=== PATIENT | male | born 1960 | race Caucasian/White ===

== ENCOUNTER 2021-08-04 10:29 | Outpatient (REF) | payer OTHER, SELFPAY ==
[2021-08-04 11:44] LABS: Hematocrit 49.4 % (42.0-52.0); Hemoglobin 16.9 g/dl (14.0-18.0); Mean Corpuscular HGB Conc 34.2 g/dl (31.0-36.0); Mean Corpuscular Hemoglobin 29.8 pg (27.0-33.0); Mean Platelet Volume 11.5 fL (9.4-12.4); Platelet Count 210 X10*3/uL (160-400); Red Blood Count 5.68 X10*6/uL (4.60-5.80); White Blood Count 7.9 X10*3/uL (4.8-10.8)
[2021-08-04 12:00] LABS: Alanine Aminotransferase 71 U/L (0-40); Albumin Level 4.9 g/dL (3.5-5.0); Alkaline Phosphatase 112 U/L (39-117); Anion Gap 16 (12-20); Aspartate Amino Transferase 63 U/L (5-37); Blood Urea Nitrogen 10 mg/dL (9-16); Calcium 10.1 mg/dL (8.4-10.2); Carbon Dioxide 24 mmol/L (22-29); Chloride 105 mmol/L (96-108); Cholesterol 215 mg/dL; Estimated Glomerular Filt Rate > 60; Glucose Fasting 176 mg/dL (60-99); HDL Cholesterol 37 mg/dL; Potassium 3.8 mmol/L (3.3-5.1); Sodium 141 mmol/L (135-145); Total Protein 7.8 g/dL (6.5-8.0); Triglycerides 441 mg/dL
[2021-08-04 12:11] LABS: Prostate Specific Antigen Scr 0.48 ng/mL (<0.05-4.0); Vitamin D 25-OH Total 13.3 ng/mL (>30)
[2021-08-04 12:18] LABS: Appearance Urine CLEAR; Color Urine YELLOW; Glucose Urine UA NEG (NEG); Leukocyte Esterase Urine NEG (NEG); Nitrite Urine NEG (NEG); PH 5.5 (5.0-8.0); Specific Gravity - Urine >= 1.030 (1.005-1.025); Urine Blood NEG (NEG); Urine Ketones NEG (NEG); Urine Protein NEG (NEG-TRACE)
[2021-08-04 12:35] LABS: RBC Urine 0 /HPF (0); WBC Urine 0 /HPF (0-4)
[2021-08-06 07:28] LABS: Estimated Average Glucose 143 mg/dL; Hemoglobin A1c % 6.6 %
== END 2021-08-04 10:30 | disposition home or self-care (01) ==
LOC: HO.HMGCLDS 10:29
PROVIDERS: PCP Internal Medicine; Visit Provider Internal Medicine
DX: Z00.00 Encounter for general adult medical examination without abnormal findings (principal); Z12.5 Encounter for screening for malignant neoplasm of prostate; R73.9 Hyperglycemia, unspecified
CPT/HCPCS: 36415; 80053; 80061; 81001; 82306; 83036; 84153; 85027

== ENCOUNTER 2021-10-28 09:32 | Outpatient (REF) | payer OTHER, SELFPAY ==
[2021-10-28 11:56] LABS: Alanine Aminotransferase 33 U/L (0-40); Albumin Level 4.7 g/dL (3.5-5.0); Alkaline Phosphatase 113 U/L (39-117); Anion Gap 13 (12-20); Aspartate Amino Transferase 32 U/L (5-37); Bilirubin Total 0.9 mg/dL (0.0-1.0); Blood Urea Nitrogen 14 mg/dL (9-16); Calcium 10.1 mg/dL (8.4-10.2); Carbon Dioxide 29 mmol/L (22-29); Chloride 104 mmol/L (96-108); Cholesterol 226 mg/dL; Estimated Glomerular Filt Rate > 60; Glucose Fasting 112 mg/dL (60-99); HDL Cholesterol 30 mg/dL; Potassium 4.1 mmol/L (3.3-5.1); Sodium 142 mmol/L (135-145); Total Protein 7.7 g/dL (6.5-8.0); Triglycerides 667 mg/dL
[2021-10-28 12:06] LABS: Vitamin D 25-OH Total 14.2 ng/mL (>30)
[2021-10-28 12:21] LABS: Folate 11.5 ng/mL (> or = 4.0); Vitamin B12 427 pg/mL (200-900)
== END 2021-10-28 09:33 | disposition home or self-care (01) ==
LOC: HO.HMGCLDS 09:32
PROVIDERS: PCP Internal Medicine; Visit Provider Internal Medicine
DX: I10 Essential (primary) hypertension (principal); R73.9 Hyperglycemia, unspecified; E53.8 Deficiency of other specified B group vitamins; E55.9 Vitamin D deficiency, unspecified; G47.30 Sleep apnea, unspecified; E78.5 Hyperlipidemia, unspecified
CPT/HCPCS: 36415; 80053; 80061; 82306; 82607; 82746

== ENCOUNTER 2021-12-13 08:31 | Outpatient (REF) | payer OTHER, SELFPAY ==
[2021-12-13 11:30] LABS: Alanine Aminotransferase 39 U/L (0-40); Albumin Level 4.5 g/dL (3.5-5.0); Alkaline Phosphatase 89 U/L (39-117); Anion Gap 11 (12-20); Aspartate Amino Transferase 34 U/L (5-37); Blood Urea Nitrogen 14 mg/dL (9-16); Calcium 9.6 mg/dL (8.4-10.2); Carbon Dioxide 27 mmol/L (22-29); Chloride 107 mmol/L (96-108); Cholesterol 153 mg/dL; Estimated Glomerular Filt Rate > 60; Glucose Fasting 129 mg/dL (60-99); HDL Cholesterol 31 mg/dL; LDL Cholesterol Calculated 78 mg/dl; Potassium 3.8 mmol/L (3.3-5.1); Sodium 141 mmol/L (135-145); Total Protein 7.2 g/dL (6.5-8.0); Triglycerides 220 mg/dL
[2021-12-13 11:31] LABS: Estimated Average Glucose 128 mg/dL; Hemoglobin A1c % 6.1 %
[2021-12-13 11:45] LABS: Creatinine Urine 119.29 mg/dL; Microalbum/Creatinine Ratio Ur 15.9 ug/mg cr
== END 2021-12-13 08:32 | disposition home or self-care (01) ==
LOC: HO.HMGCLDS 08:31
PROVIDERS: Visit Provider Internal Medicine
DX: R73.9 Hyperglycemia, unspecified (principal); I10 Essential (primary) hypertension; E78.5 Hyperlipidemia, unspecified
CPT/HCPCS: 36415; 80053; 80061; 82043; 83036

== ENCOUNTER 2022-08-28 09:00 | Outpatient (REF) | payer OTHER, SELFPAY ==
[2022-08-28 11:36] LABS: Alanine Aminotransferase 36 U/L (0-40); Albumin Level 4.7 g/dL (3.5-5.0); Alkaline Phosphatase 101 U/L (39-117); Anion Gap 14 (12-20); Aspartate Amino Transferase 32 U/L (5-37); Bilirubin Total 0.8 mg/dL (0.0-1.0); Blood Urea Nitrogen 14 mg/dL (9-16); Calcium 9.6 mg/dL (8.4-10.2); Carbon Dioxide 28 mmol/L (22-29); Chloride 103 mmol/L (96-108); Cholesterol 251 mg/dL; Estimated Glomerular Filt Rate > 60; Glucose Fasting 134 mg/dL (60-99); HDL Cholesterol 33 mg/dL; Potassium 4.1 mmol/L (3.3-5.1); Sodium 141 mmol/L (135-145); Total Protein 7.4 g/dL (6.5-8.0); Triglycerides 525 mg/dL
[2022-08-28 11:44] LABS: Estimated Average Glucose 131 mg/dL; Hemoglobin A1c % 6.2 %
[2022-08-28 11:53] LABS: Creatinine Urine 109.26 mg/dL; Microalbum/Creatinine Ratio Ur 41.1 ug/mg cr
[2022-08-28 11:57] LABS: PSA,Total (Free>4and<10) 0.46 ng/mL (0.00-4.00); Vitamin D 25-OH Total 13.9 ng/mL (>30)
[2022-08-28 14:16] LABS: Folate 10.4 ng/mL (> or = 4.0)
[2022-08-28 14:18] LABS: Vitamin B12 256 pg/mL (200-900)
== END 2022-08-28 09:01 | disposition home or self-care (01) ==
LOC: HO.HMGCLDS 09:00
PROVIDERS: PCP Internal Medicine; Visit Provider Internal Medicine
DX: Z12.5 Encounter for screening for malignant neoplasm of prostate (principal); E53.8 Deficiency of other specified B group vitamins; E55.9 Vitamin D deficiency, unspecified; I10 Essential (primary) hypertension; R73.9 Hyperglycemia, unspecified; E78.5 Hyperlipidemia, unspecified
CPT/HCPCS: 36415; 80053; 80061; 82043; 82306; 82607; 82746; 83036; 84153

== ENCOUNTER 2023-03-31 09:29 | Outpatient (REF) | payer OTHER, SELFPAY ==
[2023-03-31 11:16] LABS: MANUAL DIFF FLAG NO
[2023-03-31 11:25] LABS: Basophils Absolute Auto 0.1 X10*3/uL (0.0-0.2); Basophils Percent Auto 0.6 % (0-2); Eosinophils Absolute Auto 0.4 X10*3/uL (0.0-0.4); Eosinophils Percent Auto 4.4 % (0-4); Hematocrit 49.4 % (42.0-52.0); Hemoglobin 16.6 g/dl (14.0-18.0); Imm Gran Abs Auto 0.06 X10*3/uL (0.00-0.03); Imm Gran Pct Auto 0.8 % (0.0-0.4); Lymphocytes Absolute Auto 2.4 X10*3/uL (1.2-4.9); Lymphocytes Percent Auto 29.7 % (20-40); Mean Corpuscular HGB Conc 33.6 g/dl (31.0-36.0); Mean Corpuscular Hemoglobin 30.5 pg (27.0-33.0); Mean Corpuscular Volume 90.8 fL (80.0-98.0); Mean Platelet Volume 12.4 fL (9.4-12.4); Monocytes Absolute Auto 0.6 X10*3/uL (0.1-1.2); Monocytes Percent Auto 7.2 % (2-11); Neutrophils Absolute Auto 4.5 x10*3/uL (2.0-8.3); Neutrophils Percent Auto 57.3 % (45-73); Platelet Count 196 X10*3/uL (160-400); Red Blood Count 5.44 X10*6/uL (4.60-5.80); Red Cell Distribution Width 13.3 % (11.0-16.0); White Blood Count 7.9 X10*3/uL (4.8-10.8)
[2023-03-31 11:28] LABS: Estimated Average Glucose 131 mg/dL; Hemoglobin A1c % 6.2 %
[2023-03-31 11:35] LABS: Appearance Urine Clear; Color Urine Yellow; Glucose Urine UA Negative (Negative); Leukocyte Esterase Urine Negative (Negative); Nitrite Urine Negative (Negative); Specific Gravity - Urine 1.025 (1.005-1.025); Urine Blood Negative (Negative); Urine Ketones Negative (Negative); Urine Protein Negative (Neg-Trace)
[2023-03-31 11:38] LABS: Bacteria Urine None Seen (None Seen); Hyaline Casts Urine 0-2 /LPF (0-2); Squamous Epithelial Cell Urine 0-2 /HPF (0-2); WBC Urine 0-5 /HPF (0-5)
[2023-03-31 11:39] LABS: Alanine Aminotransferase 44 U/L (0-40); Albumin Level 4.3 g/dL (3.5-5.0); Alkaline Phosphatase 88 U/L (39-117); Anion Gap 9 (12-20); Aspartate Amino Transferase 42 U/L (5-37); Bilirubin Total 0.9 mg/dL (0.0-1.0); Blood Urea Nitrogen 14 mg/dL (9-16); Calcium 9.6 mg/dL (8.4-10.2); Carbon Dioxide 25 mmol/L (22-29); Chloride 106 mmol/L (96-108); Cholesterol 209 mg/dL; Estimated Glomerular Filt Rate > 60; Glucose Fasting 171 mg/dL (60-99); HDL Cholesterol 29 mg/dL; LDL Cholesterol Calculated 107 mg/dl; Potassium 3.8 mmol/L (3.3-5.1); Sodium 136 mmol/L (135-145); Total Protein 7.1 g/dL (6.5-8.0); Triglycerides 369 mg/dL
[2023-03-31 11:53] LABS: Creatinine Urine 174.76 mg/dL; Microalbum/Creatinine Ratio Ur 27.4 ug/mg cr
[2023-03-31 12:01] LABS: Vitamin B12 352 pg/mL (200-900)
== END 2023-03-31 09:30 | disposition home or self-care (01) ==
LOC: HO.HMGCLDS 09:29
PROVIDERS: PCP Internal Medicine; Visit Provider Internal Medicine
DX: E53.8 Deficiency of other specified B group vitamins (principal); E78.5 Hyperlipidemia, unspecified; I10 Essential (primary) hypertension; R73.9 Hyperglycemia, unspecified
CPT/HCPCS: 36415; 80053; 80061; 81001; 82043; 82607; 83036; 85025

== ENCOUNTER 2023-09-08 10:30 | Outpatient (AMB) | payer OTHER, SELFPAY ==
--- NOTE | 2023-09-08 10:33 | A.OFFPC_ITS ---
Vital Signs 09/08/23 10:35 Height 5 ft 9 in Weight 269 lb BMI 39.7 BP 130/85 Blood Pressure Location Lt brachial Position Sitting Pulse 96 Pulse Source Pulse Oximeter Pulse Oximetry (%) 97 Oxygen Delivery Method Room Air Intake Visit Reasons: 3M. HTN DM/ Cardio Referral Intake Note: Pt is here today for his 3mo. f/u HTN and DM Allergies No Known Allergies Allergy (Verified 09/08/23 10:36) Medication List - Last Reconciled 09/08/23 by Gissell Garrett MD amlodipine 10 mg PO DAILY cholecalciferol (vitamin D3) 50 mcg PO DAILY cyanocobalamin (vitamin B-12) 1,000 mcg sublingual DAILY fenofibrate nanocrystallized 145 mg PO DAILY metformin ER 750 mg PO DAILY metoprolol succinate ER 50 mg PO BID olmesartan 20 mg PO BID rosuvastatin (Crestor) 40 mg PO DAILY Tobacco use date assessed: 09/08/23 Dental Screening Dental Screen Date: 09/08/23 Did you have a dental visit in the last 12 months?: No Was dental information given to patient?: Patient has dentist HPI 3M. HTN DM/ Cardio Referral HPI Details Patient presents for the follow-up. He developed new onset AFib before colonoscopy which was canceled. Patient denies chest pain shortness of breath or palpitations. He has an appointment with financial accountant at [facility] in 2 weeks. Patient has been compliant with his medications for hypertension hyperlipidemia and type 2 diabetes. [facility] Medical History (Updated 09/08/23 @ 11:47 by Gissell Garrett MD) Arrhythmia Sleep apnea Vitamin D deficiency Vitamin B 12 deficiency Hyperlipidemia HTN (hypertension) Hyperglycemia Annual physical exam Surgical History Total knee replacement status Social History Housing: House Patient Tobacco Use Status: Never used Tobacco e-Cigarette/Vaping Use: Never Used service: No Current occupational status: employed Cognitive needs: No Hearing needs: No Vision needs: No Questionnaire Thrive Questionnaire Date Thrive assessed: 04/09/23 MECHE-7 AMB Questionnaire MECHE-7 Date MECHE - 7 assessed: 04/09/23 Source: Developed by Drs. Dominic Ace, Latanya B.W. Joe Cruz and colleagues, with an educational monica from [employer]. Review of Systems Const All systems reviewed & are unremarkable except as noted in HPI and below Reports no additional complaints Eyes Reports no additional complaints ENT Reports no additional complaints Card Reports no additional complaints Resp Reports no additional complaints GI Reports no additional complaints Reports no additional complaints Physical exam (Primary Care) Vital Signs: Last Vital Signs Pulse 96 09/08/23 10:35 BP 154/98 H 09/08/23 10:35 Pulse Ox 97 09/08/23 10:35 Oxygen Delivery Method Room Air 09/08/23 10:35 BMI result Body Mass Index 39.7 Tobacco/Smoking Status: Tobacco use Status Tobacco use date assessed 09/08/23 09/08/23 10:36 Patient Tobacco Use Status Never used Tobacco 09/08/23 10:34 e-Cigarette/Vaping Use Never Used 09/08/23 10:34 Thrive Assessment: Date of Thrive Assessment Date Thrive assessed 04/09/23 09/08/23 10:34 Const General: no acute distress HENMT Head: Yes normal to inspection Resp Effort & Inspection: normal respiratory effort Auscultation: clear to auscultation bilaterally Cardio Rhythm: abnormal rhythm irregularly irregular Heart sounds: S1 normal heart sound present and S2 normal heart sound present GI Inspection: Yes normal to inspection Palpation (GI): Soft to palpation Results AMB Hemoglobin A1c AMB Hemoglobin A1c 6.2 % Last Edit by Anaid Kemp CMA on 09/08/23 10:51 Results Reviewed Results Reviewed: Laboratory Last Values Hgb A1c (Clinic) 6.2 % (4.0-6.0) H 09/08/23 10:42 Assessment and Plan Assessment & Plan (1) DM type 2 (diabetes mellitus, type 2): Code(s): E11.9 - Type 2 diabetes mellitus without complications Plan: A1c is 6.1 continue metformin, ADA diet (2) Hyperlipidemia: Code(s): E78.5 - Hyperlipidemia, unspecified Plan: Continue Crestor and fenofibrate fasting lipid profile will be checked today (3) HTN (hypertension): Code(s): I10 - Essential (primary) hypertension Plan: Continue current medications increase metoprolol to 100 mg twice a day for better heart rate and blood pressure control. (4) Arrhythmia: Comment: New onset AFib 09/25 Code(s): I49.9 - Cardiac arrhythmia, unspecified Plan: EKG showed AFib with T-wave inversions in leads 2 3 AVF. Xarelto 20 mg will be started and metoprolol increased to 100 mg twice a day. patient will follow-up with financial accountant in 2 weeks. He will have a fasting blood work today and will follow-up in 1 month Orders: Orders Hemoglobin A1c Today E11.9 - Type 2 diabetes mellitus without complications, E78.5 - Hyperlipidemia, unspecified, I10 - Essential (primary) hypertension, I49.9 - Cardiac arrhythmia, unspecified Complete Blood Count Auto Diff Today E11.9 - Type 2 diabetes mellitus without complications, E78.5 - Hyperlipidemia, unspecified, I10 - Essential (primary) hypertension, I49.9 - Cardiac arrhythmia, unspecified TSH reflex Free T4 Today E11.9 - Type 2 diabetes mellitus without complications, E78.5 - Hyperlipidemia, unspecified, I10 - Essential (primary) hypertension, I49.9 - Cardiac arrhythmia, unspecified AMB Hemoglobin A1c Today E11.9 - Type 2 diabetes mellitus without complications Comprehensive [place]. Panel Fast Today E11.9 - Type 2 diabetes mellitus without complications, E78.5 - Hyperlipidemia, unspecified, I10 - Essential (primary) hypertension, I49.9 - Cardiac arrhythmia, unspecified Lipid Panel Today E11.9 - Type 2 diabetes mellitus without complications, E78.5 - Hyperlipidemia, unspecified, I10 - Essential (primary) hypertension, I49.9 - Cardiac arrhythmia, unspecified Medications: New rivaroxaban (Xarelto) must administer with evening meal 20 mg PO DAILY 30 tabs 0RF rivaroxaban (Xarelto) must administer with evening meal 20 mg PO DAILY 90 tabs 3RF metoprolol succinate ER 100 mg PO BID 180 tabs 2RF Refilled metformin ER 750 mg PO DAILY 90 tabs 3RF fenofibrate nanocrystallized 145 mg PO DAILY 90 tabs 3RF amlodipine 10 mg PO DAILY 90 tabs 3RF rosuvastatin (Crestor) 40 mg PO DAILY 90 tabs 3RF olmesartan 20 mg PO BID 180 tabs 3RF Discontinued metoprolol succinate ER Discontinued Reason: Doctor's Order 50 mg PO BID 180 tabs 3RF Coding Level of Care Code Est Pt Level 4 (72329) Diagnoses DM type 2 (diabetes mellitus, type 2) E11.9 Hyperlipidemia E78.5 HTN (hypertension) I10 Arrhythmia I49.9
[2023-09-08 10:35] VITALS: BP 130/85; PULSE 96; O2SAT 97; BMI 39.7
== END 2023-09-08 11:49 | disposition home or self-care (01) ==
PROVIDERS: PCP Internal Medicine; Visit Provider Internal Medicine
DX: E11.9 Type 2 diabetes mellitus without complications (principal); E78.5 Hyperlipidemia, unspecified; I10 Essential (primary) hypertension; I49.9 Cardiac arrhythmia, unspecified
CPT/HCPCS: 83036; 99214

== ENCOUNTER 2023-09-08 11:41 | Outpatient (REF) | payer OTHER, SELFPAY ==
[2023-09-08 13:08] LABS: MANUAL DIFF FLAG NO
[2023-09-08 13:41] LABS: Estimated Average Glucose 137 mg/dL; Hemoglobin A1c % 6.4 % (<6.0)
[2023-09-08 13:42] LABS: Basophils Percent Auto 0.5 % (0-2); Eosinophils Absolute Auto 0.2 X10*3/uL (0.0-0.4); Eosinophils Percent Auto 2.6 % (0-4); Hematocrit 51.4 % (42.0-52.0); Hemoglobin 17.5 g/dl (14.0-18.0); Imm Gran Abs Auto 0.02 X10*3/uL (0.00-0.03); Imm Gran Pct Auto 0.3 % (0.0-0.4); Lymphocytes Absolute Auto 1.9 X10*3/uL (1.2-4.9); Lymphocytes Percent Auto 23.2 % (20-40); Mean Corpuscular Hemoglobin 30.8 pg (27.0-33.0); Mean Corpuscular Volume 90.5 fL (80.0-98.0); Mean Platelet Volume 12.1 fL (9.4-12.4); Monocytes Absolute Auto 0.7 X10*3/uL (0.1-1.2); Monocytes Percent Auto 8.8 % (2-11); Neutrophils Absolute Auto 5.1 x10*3/uL (2.0-8.3); Neutrophils Percent Auto 64.6 % (45-73); Platelet Count 200 X10*3/uL (160-400); Red Blood Count 5.68 X10*6/uL (4.60-5.80); Red Cell Distribution Width 13.5 % (11.0-16.0)
[2023-09-08 14:02] LABS: Creatinine Urine 206.38 mg/dL; Microalbum/Creatinine Ratio Ur 53.2 ug/mg cr (<30)
[2023-09-08 14:18] LABS: Alanine Aminotransferase 59 U/L (0-40); Albumin Level 4.7 g/dL (3.5-5.0); Alkaline Phosphatase 90 U/L (39-117); Anion Gap 13 (12-20); Aspartate Amino Transferase 68 U/L (5-37); Blood Urea Nitrogen 16 mg/dL (9-16); Calcium 9.6 mg/dL (8.4-10.2); Carbon Dioxide 26 mmol/L (22-29); Chloride 106 mmol/L (96-108); Cholesterol 245 mg/dL (<200); Estimated Glomerular Filt Rate > 60; Glucose Fasting 121 mg/dL (60-99); Glucose Random 119 mg/dL (60-115); HDL Cholesterol 37 mg/dL (>40); LDL Cholesterol Calculated 142 mg/dL (<100); Potassium 3.5 mmol/L (3.3-5.1); Sodium 141 mmol/L (135-145); Total Protein 7.7 g/dL (6.5-8.0); Triglycerides 334 mg/dL (<150)
[2023-09-08 14:23] LABS: TSH reflex Free T4 1.82 uIU/mL (0.32-4.0)
== END 2023-09-08 11:42 | disposition home or self-care (01) ==
LOC: HO.HMGCLDS 11:41
PROVIDERS: PCP Internal Medicine; Visit Provider Internal Medicine
DX: I10 Essential (primary) hypertension (principal); E11.9 Type 2 diabetes mellitus without complications; I49.9 Cardiac arrhythmia, unspecified; E78.5 Hyperlipidemia, unspecified
CPT/HCPCS: 36415; 80048; 80053; 80061; 82043; 82570; 83036; 84443; 85025

== ENCOUNTER 2024-05-19 09:37 | Outpatient (REF) | payer OTHER, SELFPAY ==
[2024-05-19 13:14] LABS: MANUAL DIFF FLAG NO
[2024-05-19 13:39] LABS: Basophils Percent Auto 0.5 % (0-2); Eosinophils Absolute Auto 0.3 X10*3/uL (0.0-0.4); Eosinophils Percent Auto 4.1 % (0-4); Hematocrit 49.1 % (42.0-52.0); Hemoglobin 16.6 g/dl (14.0-18.0); Imm Gran Abs Auto 0.02 X10*3/uL (0.00-0.03); Imm Gran Pct Auto 0.3 % (0.0-0.4); Lymphocytes Absolute Auto 1.8 X10*3/uL (1.2-4.9); Lymphocytes Percent Auto 24.5 % (20-40); Mean Corpuscular HGB Conc 33.8 g/dl (31.0-36.0); Mean Corpuscular Hemoglobin 30.4 pg (27.0-33.0); Mean Corpuscular Volume 89.9 fL (80.0-98.0); Mean Platelet Volume 12.7 fL (9.4-12.4); Monocytes Absolute Auto 0.7 X10*3/uL (0.1-1.2); Monocytes Percent Auto 8.7 % (2-11); Neutrophils Absolute Auto 4.6 x10*3/uL (2.0-8.3); Neutrophils Percent Auto 61.9 % (45-73); Platelet Count 165 X10*3/uL (160-400); Red Blood Count 5.46 X10*6/uL (4.60-5.80); Red Cell Distribution Width 13.3 % (11.0-16.0); White Blood Count 7.5 X10*3/uL (4.8-10.8)
[2024-05-19 14:01] LABS: Alanine Aminotransferase 60 U/L (0-40); Albumin Level 4.6 g/dL (3.5-5.0); Alkaline Phosphatase 99 U/L (39-117); Anion Gap 17 (12-20); Aspartate Amino Transferase 74 U/L (5-37); Blood Urea Nitrogen 13 mg/dL (9-16); Calcium 9.6 mg/dL (8.4-10.2); Carbon Dioxide 22 mmol/L (22-29); Chloride 106 mmol/L (96-108); Cholesterol 223 mg/dL (<200); Estimated Glomerular Filt Rate > 60; Glucose Fasting 148 mg/dL (60-99); HDL Cholesterol 31 mg/dL (>40); Potassium 3.6 mmol/L (3.3-5.1); Sodium 141 mmol/L (135-145); Total Protein 7.4 g/dL (6.5-8.0); Triglycerides 510 mg/dL (<150)
[2024-05-19 14:02] LABS: Estimated Average Glucose 134 mg/dL; Hemoglobin A1c % 6.3 % (<6.0)
== END 2024-05-19 09:38 | disposition home or self-care (01) ==
LOC: HO.HMGCLDS 09:37
PROVIDERS: PCP Internal Medicine; Visit Provider Internal Medicine
DX: I10 Essential (primary) hypertension (principal); E11.9 Type 2 diabetes mellitus without complications; E78.5 Hyperlipidemia, unspecified
CPT/HCPCS: 36415; 80053; 80061; 83036; 85025

== ENCOUNTER 2024-05-25 09:48 | Outpatient (AMB) | payer OTHER, SELFPAY ==
--- NOTE | 2024-05-25 09:49 | MHC.PC.OV ---
Vital Signs 05/25/24 09:52 Height 5 ft 9 in Weight 266 lb BMI 39.3 BP 134/74 Blood Pressure Location Lt brachial Position Sitting Pulse 67 Pulse Source Pulse Oximeter Pulse Oximetry (%) 96 Oxygen Delivery Method Room Air Intake Visit Reasons: med f/u Intake Note: Pt is here today for a follow up visit. Pt needs a refill on Fenofibrate send to mail pharmacy. Allergies No Known Allergies Allergy (Verified 05/25/24 09:53) Medication List - Last Reconciled 05/25/24 by Gissell Garrett MD amlodipine 10 mg PO DAILY cyanocobalamin (vitamin B-12) 1,000 mcg sublingual DAILY ezetimibe (Zetia) 10 mg PO DAILY fenofibrate nanocrystallized 145 mg PO DAILY hydrochlorothiazide 12.5 mg PO DAILY metformin ER 750 mg PO DAILY metoprolol succinate ER 100 mg PO BID olmesartan 20 mg PO BID Praluent Pen (alirocumab) 75 mg subcut Q14D NS rivaroxaban (Xarelto) 20 mg PO DAILY rosuvastatin (Crestor) 40 mg PO DAILY Tobacco use date assessed: 05/25/24 Dental Screening Dental Screen Date: 05/25/24 Did you have a dental visit in the last 12 months?: Yes Did you have a dental problem in the last 6 months where you did not have access to dental care?: No Was dental information given to patient?: Patient has dentist HPI med f/u HPI Details Pt presents for f/u HTN, hyperlipid, DM 2. Pt c/o RUE intermittent tingling and pain radiating from right shoulder down to index and thumb on and off for few months. Patient denies weakness in the right upper extremity. [facility] Medical History (Updated 05/25/24 @ 10:36 by Gissell Garrett MD) Arrhythmia Sleep apnea Vitamin D deficiency Vitamin B 12 deficiency Hyperlipidemia HTN (hypertension) Annual physical exam Surgical History Total knee replacement status Social History Housing: House Patient Tobacco Use Status: Never used Tobacco e-Cigarette/Vaping Use: Never Used service: No Current occupational status: employed Cognitive needs: No Hearing needs: No Vision needs: No Questionnaire PHQ-9 Over the last 2 weeks, how often have you been bothered by any of the following problems? 1. Little interest or pleasure in doing things: not at all 2. Feeling down, depressed, or hopeless: not at all 3. Trouble falling or staying asleep, or sleeping too much: not at all 4. Feeling tired or having little energy: not at all 5. Poor appetite or overeating: not at all 6. Feeling bad about yourself - or that you are a failure or have let yourself or your family down: not at all 7. Trouble concentrating on things, such as reading the newspaper or watching television: not at all 8. Moving or speaking so slowly that other people could have noticed. Or the opposite - being so fidgety or restless that you have been moving around a lot more than usual: not at all 9. Thoughts that you would be better off or of hurting yourself in some way: not at all Total score: 0 Depression Screening Interpretation: Negative Depression Screening Done: Yes 88225 - PHQ-9 Billing: Yes Source: Developed by Drs. Dominic Ace, Latanya Cruz, Joe Morton and colleagues, with an educational monica from [employer]. Thrive Questionnaire Date Thrive assessed: 05/25/24 I am a: Patient What is your living situation today?: I have a steady place to live Within the past 12 months, did the food you bought not last and you didn't have the money to get more?: I choose not to answer this question Within the past 12 months, did you worry whether your food would run out before you got money to buy more?: I choose not to answer this question Do you have trouble paying for medicines?: I choose not to answer this question Do you have trouble getting transportation to medical appointments?: I choose not to answer this question Do you have trouble paying your heating and electricity bill?: I choose not to answer this question Do you have trouble taking care of your child, family member or friend?: I choose not to answer this question Do you have trouble with day-to-day activities such as bathing, preparing meals, shopping, managing finances, etc.?: I choose not to answer this question Are you currently unemployed and looking for a job?: I choose not to answer this question Are you interested in more education?: I choose not to answer this question Please select the resources that you would like help with: None Currently or been in a relationship where the following occur: I choose not to answer THRIVE Score: 0 AUDIT C Alcohol Use Questionnaire (AUDIT-C) 1. How often do you have a drink containing alcohol?: Never 3. How often do you have six or more drinks on one occasion?: Never Total Score: 0 MECHE-7 AMB Questionnaire MECHE-7 Date MECHE - 7 assessed: 05/25/24 Feeling nervous, anxious, or on edge: 0 = Not at all Not being able to stop or control worryin = Not at all Worrying too much about different things: 0 = Not at all Trouble relaxin = Not at all Being so restless that it is hard to sit still: 0 = Not at all Becoming easily annoyed or irritable: 0 = Not at all Feeling afraid as if something awful might happen: 0 = Not at all Total MECHE-7 score (0-4 normal; 5-9 mild; 10-14 moderate; 15-21 severe): 0 Source: Developed by Drs. Dominic Ace, Latanya Cruz, Joe Morton and colleagues, with an educational monica from [employer]. MECHE-7 Assessment Billing MECHE-7 Assessment Tool: MECHE-7 Assessment 69908 Review of Systems Const All systems reviewed & are unremarkable except as noted in HPI and below Eyes Reports no additional complaints Card Reports no additional complaints Resp Reports no additional complaints GI Reports no additional complaints Reports no additional complaints Physical exam (Primary Care) Vital Signs: Last Vital Signs Pulse 67 05/25/24 09:52 BP 134/74 05/25/24 09:52 Pulse Ox 96 05/25/24 09:52 Oxygen Delivery Method Room Air 05/25/24 09:52 BMI result Body Mass Index 39.3 Tobacco/Smoking Status: Tobacco use Status Tobacco use date assessed 05/25/24 05/25/24 09:55 Patient Tobacco Use Status Never used Tobacco 05/25/24 09:55 e-Cigarette/Vaping Use Never Used 05/25/24 09:49 PHQ-9: PHQ-9 Score PHQ-9: Total score 0 05/25/24 09:57 Depression Screening Interpretation: Negative Thrive Assessment: Date of Thrive Assessment Date Thrive assessed 05/25/24 05/25/24 09:57 Currently or been in a relationship where the following occur: I choose not to answer Const General: no acute distress HENMT Face and sinus: Yes normal facial exam Eyes General: appearance normal, both eyes and all related structures Resp Effort & Inspection: normal respiratory effort Auscultation: clear to auscultation bilaterally Cardio Rhythm: regular rhythm Heart sounds: S1 normal heart sound present and S2 normal heart sound present GI Inspection: Yes normal to inspection Palpation (GI): Soft to palpation Percussion: Yes normal to percussion Auscultation: normal bowel sounds Neuro General: Normal light touch and pain sensation, no focal motor deficits and CN's II-XI intact bilaterally Assessment and Plan Assessment & Plan (1) DM type 2 (diabetes mellitus, type 2): Code(s): E11.9 - Type 2 diabetes mellitus without complications Plan: A1c is 6.3, ADA diet increase exercise weight loss discussed with the patient . continue metformin follow-up in 4 months with a fasting labs before (2) Hyperlipidemia: Code(s): E78.5 - Hyperlipidemia, unspecified Plan: Patient is on 3 medications for hyperlipidemia hypertriglyceridemia with persistent elevation of triglycerides about 500 and total cholesterol above 250, Praluent 75 mg 2 weeks will be added (3) HTN (hypertension): Code(s): I10 - Essential (primary) hypertension Plan: Continue current medications (4) Obesity: Code(s): E66.9 - Obesity, unspecified Plan: Increase physical activity decrease caloric intake and weight loss discussed with the patient (5) Sleep apnea: Comment: Cpap f/u pul [facility] q 3 months Code(s): G47.30 - Sleep apnea, unspecified (6) Arrhythmia: Comment: New onset AFib 09/25 Code(s): I49.9 - Cardiac arrhythmia, unspecified Plan: Continue metoprolol and Xarelto (7) Right arm numbness: Code(s): R20.0 - Anesthesia of skin Plan: Obtain EMG to evaluate for cervical radiculopathy/carpal tunnel Orders: Orders Hemoglobin A1c 4 Months E11.9 - Type 2 diabetes mellitus without complications, E78.5 - Hyperlipidemia, unspecified, I10 - Essential (primary) hypertension Comprehensive [place]. Panel Fast 4 Months E11.9 - Type 2 diabetes mellitus without complications, E78.5 - Hyperlipidemia, unspecified, I10 - Essential (primary) hypertension NE electromyogram (EMG) 4 Months E11.9 - Type 2 diabetes mellitus without complications, E78.5 - Hyperlipidemia, unspecified, I10 - Essential (primary) hypertension, R20.0 - Anesthesia of skin Lipid Panel 4 Months E11.9 - Type 2 diabetes mellitus without complications, E78.5 - Hyperlipidemia, unspecified, I10 - Essential (primary) hypertension Microalbumin, Random (w Creat) 4 Months E11.9 - Type 2 diabetes mellitus without complications, E78.5 - Hyperlipidemia, unspecified, I10 - Essential (primary) hypertension PSA,Total (Free>4and<10) 4 Months E11.9 - Type 2 diabetes mellitus without complications, E78.5 - Hyperlipidemia, unspecified, I10 - Essential (primary) hypertension Complete Blood Count Auto Diff 4 Months E11.9 - Type 2 diabetes mellitus without complications, E78.5 - Hyperlipidemia, unspecified, I10 - Essential (primary) hypertension Medications: New Praluent Pen (alirocumab) 75 mg subcut Q14D 2 mL 4RF NS Refilled fenofibrate nanocrystallized 145 mg PO DAILY 90 tabs 3RF Coding Level of Care Code Est Pt Level 4 (19148) Diagnoses DM type 2 (diabetes mellitus, type 2) E11.9 Hyperlipidemia E78.5 HTN (hypertension) I10 Obesity E66.9 Sleep apnea G47.30 Arrhythmia I49.9 Right arm numbness R20.0 Additional Codes MECHE-7 Assessment Billing - MECHE-7 Assessment Tool: MECHE-7 Assessment 34389 ([id number])
[2024-05-25 09:52] VITALS: BP 134/74; PULSE 67; O2SAT 96; BMI 39.3
== END 2024-05-25 10:36 | disposition home or self-care (01) ==
PROVIDERS: PCP Internal Medicine; Visit Provider Internal Medicine
DX: E11.9 Type 2 diabetes mellitus without complications (principal); E66.01 Morbid (severe) obesity due to excess calories; Z68.39 Body mass index [BMI] 39.0-39.9, adult; E78.5 Hyperlipidemia, unspecified; I10 Essential (primary) hypertension; G47.30 Sleep apnea, unspecified; I49.9 Cardiac arrhythmia, unspecified; R20.0 Anesthesia of skin
CPT/HCPCS: 99214

== ENCOUNTER 2024-08-29 11:07 | Outpatient (REF) | payer OTHER, SELFPAY ==
--- NOTE | 2024-08-29 11:09 | EMG_ITS ---
Right median and ulnar motor and sensory studies were performed. Right radial sensory and median lateral antecubital brachial sensory studies were performed and paraspinal muscles were tested with a needle. IMPRESSION: 1. [id number] right median neuropathy across carpal tunnel. 2. Mild right ulnar neuropathy across cubital tunnel. MD NATASHA Weir/PAUL / [id number]
== END 2024-08-29 11:08 | disposition home or self-care (01) ==
LOC: HO.NEURO 11:07
PROVIDERS: PCP Internal Medicine; Visit Provider Internal Medicine
DX: R20.0 Anesthesia of skin (principal); E78.5 Hyperlipidemia, unspecified; I10 Essential (primary) hypertension; E11.9 Type 2 diabetes mellitus without complications
CPT/HCPCS: 95886; 95910

== ENCOUNTER 2024-09-13 09:04 | Outpatient (REF) | payer OTHER, SELFPAY ==
[2024-09-13 10:01] LABS: MANUAL DIFF FLAG NO
[2024-09-13 10:12] LABS: Basophils Percent Auto 0.4 % (0-2); Eosinophils Absolute Auto 0.3 X10*3/uL (0.0-0.4); Eosinophils Percent Auto 3.4 % (0-4); Hematocrit 48.8 % (42.0-52.0); Hemoglobin 16.4 g/dl (14.0-18.0); Imm Gran Abs Auto 0.04 X10*3/uL (0.00-0.03); Imm Gran Pct Auto 0.4 % (0.0-0.4); Lymphocytes Absolute Auto 2.3 X10*3/uL (1.2-4.9); Lymphocytes Percent Auto 25.6 % (20-40); Mean Corpuscular HGB Conc 33.6 g/dl (31.0-36.0); Mean Corpuscular Hemoglobin 30.1 pg (27.0-33.0); Mean Corpuscular Volume 89.5 fL (80.0-98.0); Mean Platelet Volume 12.2 fL (9.4-12.4); Monocytes Absolute Auto 0.8 X10*3/uL (0.1-1.2); Monocytes Percent Auto 9.2 % (2-11); Neutrophils Absolute Auto 5.5 x10*3/uL (2.0-8.3); Platelet Count 191 X10*3/uL (160-400); Red Blood Count 5.45 X10*6/uL (4.60-5.80); Red Cell Distribution Width 13.2 % (11.0-16.0)
[2024-09-13 10:27] LABS: Estimated Average Glucose 117 mg/dL; Hemoglobin A1C 155.4397 umol/L; Hemoglobin A1c % 5.7 % (<6.0)
[2024-09-13 10:44] LABS: Creatinine Urine 172.25 mg/dL; Microalbum/Creatinine Ratio Ur 19.7 ug/mg cr (<30)
[2024-09-13 10:59] LABS: Alanine Aminotransferase 39 U/L (0-40); Albumin Level 4.6 g/dL (3.5-5.0); Alkaline Phosphatase 80 U/L (39-117); Anion Gap 11 (12-20); Aspartate Amino Transferase 40 U/L (5-37); Blood Urea Nitrogen 20 mg/dL (9-16); Calcium 10.2 mg/dL (8.4-10.2); Carbon Dioxide 29 mmol/L (22-29); Chloride 106 mmol/L (96-108); Cholesterol 246 mg/dL (<200); Estimated Glomerular Filt Rate > 60; Glucose Fasting 126 mg/dL (60-99); HDL Cholesterol 34 mg/dL (>40); LDL Cholesterol Calculated 153 mg/dL (<100); Potassium 3.7 mmol/L (3.3-5.1); Sodium 142 mmol/L (135-145); Total Protein 7.5 g/dL (6.5-8.0); Triglycerides 297 mg/dL (<150)
[2024-09-13 11:02] LABS: PSA,Total (Free>4and<10) 0.67 ng/mL (0.00-4.00)
== END 2024-09-13 09:05 | disposition home or self-care (01) ==
LOC: HO.HMGCLDS 09:04
PROVIDERS: PCP Internal Medicine; Visit Provider Internal Medicine
DX: E78.5 Hyperlipidemia, unspecified (principal); I10 Essential (primary) hypertension; E11.9 Type 2 diabetes mellitus without complications; Z12.5 Encounter for screening for malignant neoplasm of prostate
CPT/HCPCS: 36415; 80053; 80061; 82043; 82570; 83036; 84153; 85025

== ENCOUNTER 2024-09-18 09:25 | Outpatient (REF) | payer OTHER, SELFPAY ==
[2024-09-18 13:21] LABS: Appearance Urine Clear; Color Urine Yellow; Glucose Urine UA Negative (Negative); Leukocyte Esterase Urine Negative (Negative); Nitrite Urine Negative (Negative); Urine Blood Negative (Negative); Urine Ketones Negative (Negative); Urine Protein Negative (Neg-Trace)
[2024-09-18 13:25] LABS: Bacteria Urine None Seen (None Seen); Hyaline Casts Urine 0-2 /LPF (0-2); RBC Urine 0-2 /HPF (0-2); Squamous Epithelial Cell Urine 0-2 /HPF (0-2); WBC Urine 0-5 /HPF (0-5)
== END 2024-09-18 09:26 | disposition home or self-care (01) ==
LOC: HO.HMGCLDS 09:25
PROVIDERS: PCP Internal Medicine; Visit Provider Internal Medicine
DX: Z00.00 Encounter for general adult medical examination without abnormal findings (principal); E11.9 Type 2 diabetes mellitus without complications; G47.30 Sleep apnea, unspecified; E78.5 Hyperlipidemia, unspecified; I10 Essential (primary) hypertension; R33.9 Retention of urine, unspecified; Z79.84 Long term (current) use of oral hypoglycemic drugs
CPT/HCPCS: 81001; 96127

== ENCOUNTER 2024-09-18 09:25 | Outpatient (AMB) | payer OTHER, SELFPAY ==
[2024-09-18 09:28] VITALS: BP 136/80; PULSE 54; O2SAT 98; BMI 37.8
--- NOTE | 2024-09-18 09:28 | A.OFFPC_ITS ---
Vital Signs 09/18/24 09:28 Height 5 ft 9 in Weight 256 lb BMI 37.8 BP 136/80 Blood Pressure Location Lt brachial Position Sitting Pulse 54 Pulse Source Pulse Oximeter Pulse Oximetry (%) 98 Oxygen Delivery Method Room Air Intake Visit Reasons: Annual PE - see comments Intake Note: Pt is here today for PE. Allergies No Known Allergies Allergy (Verified 09/18/24 09:29) Medication List - Last Reconciled 09/18/24 by Gissell Garrett MD amlodipine 10 mg PO DAILY cyanocobalamin (vitamin B-12) 1,000 mcg sublingual DAILY ezetimibe (Zetia) 10 mg PO DAILY fenofibrate nanocrystallized 145 mg PO DAILY hydrochlorothiazide 12.5 mg PO DAILY metformin ER 750 mg PO DAILY metoprolol succinate ER 100 mg PO BID olmesartan 20 mg PO BID rivaroxaban (Xarelto) 20 mg PO DAILY rosuvastatin (Crestor) 40 mg PO DAILY Tobacco use date assessed: 09/18/24 Dental Screening Dental Screen Date: 09/18/24 Did you have a dental visit in the last 12 months?: Yes Did you have a dental problem in the last 6 months where you did not have access to dental care?: No Was dental information given to patient?: Patient has dentist HPI Annual PE - see comments HPI Details Pt presents for PE. Patient reports intermittent episodes of urinary urgency during the day. He denies dysuria abdominal pain nocturia incontinence. Patient has been taking Azo with good relief. [facility] Medical History (Updated 09/18/24 @ 10:05 by Gissell Garrett MD) Arrhythmia Sleep apnea Vitamin D deficiency Vitamin B 12 deficiency Hyperlipidemia HTN (hypertension) Annual physical exam Surgical History Total knee replacement status Social History Housing: House Patient Tobacco Use Status: Never used Tobacco e-Cigarette/Vaping Use: Never Used service: No Current occupational status: employed Cognitive needs: No Hearing needs: No Vision needs: No Questionnaire PHQ-9 Over the last 2 weeks, how often have you been bothered by any of the following problems? 1. Little interest or pleasure in doing things: not at all 2. Feeling down, depressed, or hopeless: not at all 3. Trouble falling or staying asleep, or sleeping too much: not at all 4. Feeling tired or having little energy: not at all 5. Poor appetite or overeating: not at all 6. Feeling bad about yourself - or that you are a failure or have let yourself or your family down: not at all 7. Trouble concentrating on things, such as reading the newspaper or watching te levision: not at all 8. Moving or speaking so slowly that other people could have noticed. Or the opposite - being so fidgety or restless that you have been moving around a lot more than usual: not at all 9. Thoughts that you would be better off or of hurting yourself in some way: not at all Total score: 0 Depression Screening Interpretation: Negative Depression Screening Done: Yes 72764 - PHQ-9 Billing: Yes Source: Developed by Drs. Dominic Ace, Latanya Cruz, Joe Morton and colleagues, with an educational monica from [employer]. Thrive Questionnaire Date Thrive assessed: 09/18/24 I am a: Patient What is your living situation today?: I have a steady place to live Within the past 12 months, did the food you bought not last and you didn't have the money to get more?: I choose not to answer this question Within the past 12 months, did you worry whether your food would run out before you got money to buy more?: I choose not to answer this question Do you have trouble paying for medicines?: I choose not to answer this question Do you have trouble getting transportation to medical appointments?: I choose not to answer this question Do you have trouble paying your heating and electricity bill?: I choose not to answer this question Do you have trouble taking care of your child, family member or friend?: I choose not to answer this question Do you have trouble with day-to-day activities such as bathing, preparing meals, shopping, managing finances, etc.?: I choose not to answer this question Are you currently unemployed and looking for a job?: I choose not to answer this question Are you interested in more education?: I choose not to answer this question Please select the resources that you would like help with: None Currently or been in a relationship where the following occur: I choose not to answer THRIVE Score: 0 MECHE-7 AMB Questionnaire MECHE-7 Date MECHE - 7 assessed: 09/18/24 Feeling nervous, anxious, or on edge: 0 = Not at all Not being able to stop or control worryin = Not at all Worrying too much about different things: 0 = Not at all Trouble relaxin = Not at all Being so restless that it is hard to sit still: 0 = Not at all Becoming easily annoyed or irritable: 0 = Not at all Feeling afraid as if something awful might happen: 0 = Not at all Total MECHE-7 score (0-4 normal; 5-9 mild; 10-14 moderate; 15-21 severe): 0 Source: Developed by Drs. Dominic Ace, Latanya Cruz, Joe Morton and colleagues, with an educational monica from [employer]. MECHE-7 Assessment Billing MECHE-7 Assessment Tool: MECHE-7 Assessment 10533 Review of Systems Const All systems reviewed & are unremarkable except as noted in HPI and below Reports no additional complaints Eyes Reports no additional complaints ENT Reports no additional complaints Card Reports no additional complaints Resp Reports no additional complaints GI Reports no additional complaints Reports no additional complaints Physical exam (Primary Care) Vital Signs: Last Vital Signs Pulse 54 09/18/24 09:28 BP 136/80 09/18/24 09:28 Pulse Ox 98 09/18/24 09:28 Oxygen Delivery Method Room Air 09/18/24 09:28 BMI result Body Mass Index 37.8 Tobacco/Smoking Status: Tobacco use Status Tobacco use date assessed 09/18/24 09/18/24 09:33 Patient Tobacco Use Status Never used Tobacco 09/18/24 09:33 e-Cigarette/Vaping Use Never Used 09/18/24 09:33 PHQ-9: PHQ-9 Score PHQ-9: Total score 0 09/18/24 09:33 Depression Screening Interpretation: Negative Thrive Assessment: Date of Thrive Assessment Date Thrive assessed 09/18/24 09/18/24 09:33 Currently or been in a relationship where the following occur: I choose not to answer Const General: no acute distress HENMT Head: Yes normal to inspection Ears: hearing grossly normal bilaterally Face and sinus: Yes normal facial exam Mouth: Normal oral and palatal mucosa present Teeth and gingiva: dentition normal Throat: Yes posterior oropharynx normal Eyes General: appearance normal, both eyes and all related structures Neck Neck: Yes no lymphadenopathy and Yes supple Resp Effort & Inspection: normal respiratory effort Auscultation: clear to auscultation bilaterally Cardio Rhythm: regular rhythm Heart sounds: S1 normal heart sound present and S2 normal heart sound present GI Inspection: Yes normal to inspection Palpation (GI): Soft to palpation Percussion: Yes normal to percussion Auscultation: normal bowel sounds Coding Level of Care Code Est Pt Prev Care 40-64y(75359) Diagnoses DM type 2 (diabetes mellitus, type 2) E11.9 Sleep apnea G47.30 Hyperlipidemia E78.5 HTN (hypertension) I10 Annual physical exam Z00.00 Urinary retention R33.9 Additional Codes MECHE-7 Assessment Billing - MECHE-7 Assessment Tool: MECHE-7 Assessment 30984 ([id number]) PHQ-9 - 60557 - PHQ-9 Billing: Yes ([id number]) Assessment & Plan Assessment & Plan (1) DM type 2 (diabetes mellitus, type 2): Code(s): E11.9 - Type 2 diabetes mellitus without complications Category: Medical Plan: A1c is 5.7, continue metformin ADA diet regular exercise follow-up in 4 months (2) Sleep apnea: Comment: Cpap f/u pul [facility] q 3 months Code(s): G47.30 - Sleep apnea, unspecified Category: Medical Plan: Continue CPAP follow-up with sleep medicine (3) Hyperlipidemia: Comment: Pt was seen by [facility] and prescribed fish oil in addition to statins Zetia and fenofibrate for familiar hyperlipidemia 07/2024 Code(s): E78.5 - Hyperlipidemia, unspecified Category: Medical Plan: Continue current medications (4) HTN (hypertension): Code(s): I10 - Essential (primary) hypertension Category: Medical Plan: Continue current medications (5) Annual physical exam: Code(s): Z00.00 - Encounter for general adult medical examination without abnormal findings Category: Medical Plan: Well-balanced diet regular exercise discussed with the patient he declined colonoscopy Cologuard is ordered (6) Urinary retention: Code(s): R33.9 - Retention of urine, unspecified Category: Medical Plan: Obtain UA urine culture and bladder ultrasound if urine retention present tamsulosin will be started Orders: Orders US bladder Today R33.9 - Retention of urine, unspecified Hemoglobin A1c 4 Months E11.9 - Type 2 diabetes mellitus without complications, E78.5 - Hyperlipidemia, unspecified, I10 - Essential (primary) hypertension Microalbumin, Random (w Creat) 4 Months E11.9 - Type 2 diabetes mellitus without complications, E78.5 - Hyperlipidemia, unspecified, I10 - Essential (primary) hypertension UA w Microscopic Today R33.9 - Retention of urine, unspecified Comprehensive [place]. Panel Fast 4 Months E11.9 - Type 2 diabetes mellitus without complications, E78.5 - Hyperlipidemia, unspecified, I10 - Essential (primary) hypertension Complete Blood Count Auto Diff 4 Months E11.9 - Type 2 diabetes mellitus without complications, E78.5 - Hyperlipidemia, unspecified, I10 - Essential (primary) hypertension Lipid Panel 4 Months E11.9 - Type 2 diabetes mellitus without complications, E78.5 - Hyperlipidemia, unspecified, I10 - Essential (primary) hypertension Referrals Cologuard Test Z12.11 - Encounter for screening for malignant neoplasm of colon, Z12.12 - Encounter for screening for malignant neoplasm of rectum Medications: New metformin 500 mg PO BID 360 tabs 1RF Discontinued metformin ER Discontinued Reason: Doctor's Order 750 mg PO DAILY 90 tabs 3RF
== END 2024-09-18 10:04 | disposition home or self-care (01) ==
PROVIDERS: PCP Internal Medicine; Visit Provider Internal Medicine
DX: E11.9 Type 2 diabetes mellitus without complications (principal); G47.30 Sleep apnea, unspecified; E78.5 Hyperlipidemia, unspecified; I10 Essential (primary) hypertension; Z00.00 Encounter for general adult medical examination without abnormal findings; R33.9 Retention of urine, unspecified

== ENCOUNTER 2024-09-20 11:13 | Outpatient (REF) | payer OTHER, SELFPAY ==
--- NOTE | ~2024-09-20 | US_ITS ---
EXAMINATION: US PELVIS LIMITED (BLADDER) CLINICAL INFORMATION: Retention of urine. COMPARISON: None available. TECHNIQUE: Real-time imaging of the bladder. FINDINGS: BLADDER: Well-distended. Mild diffuse irregularity and thickening of the bladder wall with bladder wall thickness of 0.4 cm. Bilateral ureteral jets are demonstrated. Prevoid bladder volume is 206 mL. Postvoid bladder volume is 16 mL. Enlarged prostate with coarse calcifications and volume is 49 mL. US/US bladder IMPRESSION: Mild diffuse irregularity and thickening of the bladder wall with bladder wall thickness of 0.4 cm. Enlarged prostate with coarse calcifications and volume is 49 mL. This study was presented today to September 20, 2024 for interpretation. Stat results provided at this time as requested by referring provider. Electronically signed by: Mely Lord MD 09/20/2024 01:35 PM EST
== END 2024-09-20 11:14 | disposition home or self-care (01) ==
LOC: HO.HMGCX 11:13
PROVIDERS: PCP Internal Medicine; Visit Provider Internal Medicine
DX: R33.9 Retention of urine, unspecified (principal)
CPT/HCPCS: 76857

== ENCOUNTER 2024-12-20 08:08 | Outpatient (AMB) | payer OTHER, SELFPAY ==
--- NOTE | 2024-12-20 08:10 | MHC.OFFVIS ---
Intake Visit Reasons: urinary retention Intake Note: New patient presents today for initial visit for urinary retention/BPH Urology Medication:none Blood Thinner:Xarelto Antibiotic Allergies:none PVR:52ml Allergies No Known Allergies Allergy (Verified 12/20/24 09:24) Medication List - Last Reconciled 12/20/24 by ULIESS Hernadez- amlodipine 10 mg PO DAILY cyanocobalamin (vitamin B-12) 1,000 mcg sublingual DAILY ezetimibe (Zetia) 10 mg PO DAILY fenofibrate nanocrystallized 145 mg PO DAILY finasteride 5 mg PO DAILY 90 days hydrochlorothiazide 12.5 mg PO DAILY metformin 500 mg PO BID metoprolol succinate ER 100 mg PO BID olmesartan 20 mg PO BID rivaroxaban (Xarelto) 20 mg PO QPM rosuvastatin (Crestor) 40 mg PO DAILY tamsulosin 0.4 mg PO BEDTIME 90 days HPI Comments Details: Amari is a very pleasant 64-year-old male patient of Dr. Garrett who was accompanied by his daughter at today's office visit. He has a past medical history of sleep apnea, arrhythmia, vitamin-D deficiency, hyperlipidemia, and hypertension. He presents to the office today as a new patient for urinary retention. In discussion with the patient today he reports noting new onset of urinary urgency over the last 4 months at which time he followed up with his PCP in a bladder ultrasound and PSA were ordered for further assessment evaluation. These results were reviewed with the patient and his daughter today. PSA 09/26 0.7 The bladder is well distended. Mild diffuse irregularity and thickening of the bladder wall, bladder wall thickness of 0.4 cm. Pre void bladder volume is approximately 200 mL. Postvoid bladder volume is approximately 15 mL. Enlarged prostate with coarse calcifications and a volume of 50 mL. We discussed at length potential causes of lower urinary tract symptoms patient was experiencing. We discussed bladder triggers/irritants. We discussed further treatment options of lower urinary tract symptoms and risks and benefits of these treatment options. He denies incontinence, nocturia, hematuria, dysuria, foul smelling urine, changes to urinary stream, flank pain, fever, and or chills. In office urinalysis results reviewed with the patient today. PVR 52 mL. We discussed in office cystoscopy for further assessment evaluation. All questions were answered. He otherwise offers no other issues or concerns at this time. Plan The treatment of benign prostatic hyperplasia will begin with finasteride to reduce prostate size, alongside an alpha-karan to alleviate urinary urgency and frequency symptoms. Surgical options were reviewed for potential future use if medication fails to provide adequate symptom relief. Initial pharmacological treatment aligns with guidelines favoring medical management over surgery. I advised dietary adjustments and posture changes while urinating as non-pharmacological strategies to manage symptoms. Monitoring during follow-up appointments will guide the continued treatment pathway. Patient was informed and verbally consented to the use of an ambient scribe for clinic note documentation during this visit. Discussion Notes I discussed the diagnosis of benign prostatic hyperplasia with the patient and reviewed the implications of his enlarged prostate. I recommended initiating treatment with finasteride and an alpha-karan to manage his urinary symptoms. I explained the medications' potential benefits and side effects, emphasizing that TURP might be considered if medications are ineffective or poorly tolerated. The surgical procedure, its success rates, and the reduction of lifelong medication necessity were detailed. Lifestyle adjustments, such as dietary modifications and urinating posture, were also highlighted as supplemental interventions. A follow-up appointment was offered to track progress, side effects, and symptom transformation. [facility] Medical History Arrhythmia Sleep apnea Vitamin D deficiency Vitamin B 12 deficiency Hyperlipidemia HTN (hypertension) Annual physical exam Surgical History Total knee replacement status Social History Housing: House Patient Tobacco Use Status: Never used Tobacco e-Cigarette/Vaping Use: Never Used service: No Current occupational status: employed Cognitive needs: No Hearing needs: No Vision needs: No Review of Systems Const All systems reviewed & are unremarkable except as noted in HPI and below Physical Exam Const General: cooperative, healthy appearing, comfortable, no acute distress, well developed, alert and awake Orientation/consciousness: patient oriented x3 HEENT Head: Yes normal to inspection, Yes normocephalic and Yes atraumatic Ears: hearing grossly normal bilaterally Eyes General: appearance normal, both eyes and all related structures Neck Neck: Yes normal visual inspection and Yes trachea midline Chest Chest palpation & inspection: normal inspection of the chest Resp Effort & Inspection: normal respiratory effort and able to speak in complete sentences Cardio Rate: regular rate GI Inspection: Yes normal to inspection General: Yes no CVA tenderness Back/Spine/Pelvis Back: no CVA tenderness Skin General skin exam: no rashes or lesions noted Neuro General: patient oriented x3 Extrem General: Yes normal to inspection Psych Appearance: grossly normal and well kempt Mental Status: mental status grossly normal Speech and movement: Normal speech and movement present and Clear speech present Affect: normal affect Attitude: cooperative Thought process: Normal thought process present Thought content: Normal thought content present Insight: Fair insight present (Psych) Judgement: Fair judgement present (Psych) Office Procedures Post Void Residual Post Residual Void Post Void Residual (PVR): 52 [id number]-Dyms Void Residual by ultrasound Results AMB Urinalysis, Automated UA Leukoctes 0 Preeti/uL Last Edit by Carmen Kemp on 12/20/24 08:28 UA Nitrite Negative Last Edit by Carmen Kemp on 12/20/24 08:28 UA Urobilinogen 3.5 mg/dL Last Edit by Carmen Kemp on 12/20/24 08:28 UA Protein 1 mg/dL Last Edit by Carmen Kemp on 12/20/24 08:28 UA pH 5.5 Last Edit by Carmen Kemp on 12/20/24 08:28 UA Blood 0 Jesse/uL Last Edit by Carmen Kemp on 12/20/24 08:28 UA Specific Ward 1.025 Last Edit by Carmen Kemp on 12/20/24 08:28 UA Ketone Negative Last Edit by Carmen Kemp on 12/20/24 08:28 UA Bilirubin 0 mg/dL Last Edit by Carmen Kemp on 12/20/24 08:28 UA Glucose 0 mg/dL Last Edit by Carmen Kemp on 12/20/24 08:28 Results Reviewed Results Reviewed: Laboratory Last Values Urine pH (Auto) 5.5 12/20/24 08:09 Specific Ward (Auto) 1.025 12/20/24 08:09 Urine Protein (Auto) 1 mg/dL 12/20/24 08:09 Glucose (UA)(Auto) 0 mg/dL 12/20/24 08:09 Urine Ketones (Auto) Negative 12/20/24 08:09 Urine Blood (Auto) 0 Jesse/uL 12/20/24 08:09 Urine Nitrite (Auto) Negative 12/20/24 08:09 Urine Bilirubin (Auto) 0 mg/dL 12/20/24 08:09 Urine Urobilinogen (Auto) 3.5 mg/dL 12/20/24 08:09 Leukocyte Esterase (Auto) 0 Preeti/uL 12/20/24 08:09 Date of Service: 09/20/24 Procedure(s): US bladder FINDINGS: BLADDER: Well-distended. Mild diffuse irregularity and thickening of the bladder wall with bladder wall thickness of 0.4 cm. Bilateral ureteral jets are demonstrated. Prevoid bladder volume is 206 mL. Postvoid bladder volume is 16 mL. Enlarged prostate with coarse calcifications and volume is 49 mL. IMPRESSION: Mild diffuse irregularity and thickening of the bladder wall with bladder wall thickness of 0.4 cm. Enlarged prostate with coarse calcifications and volume is 49 mL. This study was presented today to September 20, 2024 for interpretation. Stat results provided at this time as requested by referring provider. 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 PVR 52 mL We discussed potential causes lower urinary tract symptoms patient was experiencing. We discussed bladder triggers/irritants. Previous bladder ultrasound results reviewed with the patient was started today; as noted above. Recent PSA results reviewed with the patient and his daughter today; as noted above. We discussed further treatment options and risks and benefits of these treatment options; this was discussed at length. Start finasteride. Start Flomax as discussed and prescribed. We discussed importance of management and diabetes for improvement in lower urinary tract symptoms as well as overall health and well-being. We discussed potential near future in office cystoscopy for further assessment evaluation. Follow-up in 1-3 months with PVR; or sooner with any issues, concerns, and or questions. Orders: Orders AMB Urinalysis Automated Today Z13.9 - Encounter for screening, unspecified AMB Post Void Residual by ultrasound Today N40.0 - Benign prostatic hyperplasia without lower urinary tract symptoms Medications: New tamsulosin 0.4 mg PO BEDTIME 90 caps 1RF 90 days N40.1 - Benign prostatic hyperplasia with lower urinary tract symptoms finasteride 5 mg PO DAILY 90 tabs 1RF 90 days N32.0 - Bladder-neck obstruction Patient Instructions: The patient had an opportunity to ask questions regarding the treatment plan. All questions were answered. Physical exam, labs, and imaging were discussed and reviewed in detail. As well as risks, benefits, and discussion of treatment choices. No major barriers to understanding were identified. The patient expressed understanding and agreement with the above treatment plan. The patient was made aware they should contact our office by phone for worsening of their current condition, the appearance of new symptoms, or with any questions or concerns. Compliance is encouraged with any medications and follow up testing that is ordered. It is a privilege to be allowed the opportunity to participate in? your urological care.? Again, if you have any questions or concerns If you have any questions or concerns please do not hesitate to contact me. The office is [phone]. This note is constructed using voice recognition software. While every effort has been made to ensure accuracy financial aid manager errors may have been included. Yours sincerely, ULISES Hernadez- Coding Level of Care Code New Pt Level 4 (78437) Diagnoses Bladder trabeculation N32.89 Urinary urgency R39.15 Enlarged prostate N40.0 CPT Codes Post Residual Void - PVR CPT Code: 57450-Ksew Void Residual by ultrasound ([id number])
--- OUTSIDE RECORDS SUMMARY | 2024-12-20 08:14 | XMS_ITS | Clinical Summary ---
Author Organization [facility] Address [address] [place] [address] Care Team Providers Care Fitting Supervisor Name Role Phone Erin Orozco DO Primary Care P rovider Allergies No known active allergies Medications Medication Sig Dispensed Refills Start Date End Date Status amLODIPine (NORVASC) tablet 10 mg Take 10 mg by mouth. 0 07/25/2018 Active ezetimibe (ZETIA) tablet 10 mg Take 10 mg by mouth. 0 07/25/2018 Active fenofibrate (TRICOR) tablet 145 mg Take 145 mg by mouth. 0 07/25/2018 Active losartan (COZAAR) 100 MG tablet Take 100 mg by mouth. 0 07/25/2018 Active metoprolol tartrate (LOPRESSOR) 50 MG tablet TAKE 1 TABLET BY MOUTH DAILY 0 07/29/2018 Active rosuvastatin (CRESTOR) tablet 20 mg Take 20 mg by mouth. 0 07/25/2018 Active omeprazole (PriLOSEC) 20 MG capsule 0 09/30/2020 Active ergocalciferol (VITAMIN D2) capsule 08468 units 0 01/03/2021 Active Cyanocobalamin (VITAMIN B-12) 1000 MCG/15ML LIQD Take 1,000 mcg by mouth. 0 01/05/2021 Active Active Problems Problem Noted Date Diagnosed Date Patellofemoral arthritis of right knee 9 Patellofemoral arthritis of left knee 08/03/2019 Left knee injury, initial encounter 08/05/2018 Acute meniscal tear of knee, left, initial encou nter 08/05/2018 Social History Tobacco Use Types Packs/Day Years Used Date Smoking Tobacco: Never Smokeless Tobacco: Never Alcohol Use Standard Drinks/Week Comments Yes 2 (1 standard drink = 0.6 oz pur e alcohol) Sex and Gender Information Value Date Recorded Sex Assigned at Not on file Gender Identity Not on file Sexual Orientation Not on file Job Start Date Occupation Industry Not on file Not on file Not on file Last Filed Vital Signs Vital Sign Reading Time Taken Comments Blood Pressure - - Pulse - - Temperature - - Respiratory Rate - - Oxygen Saturation - - Inhaled Oxygen Concentration - - Weight 119.3 kg (263 lb) 08/27/2021 9:04 AM EST Height 182.9 cm (6') 08/27/2021 9:04 AM EST Body Mass Index 35.67 08/27/2021 9:04 AM EST Plan of Treatment Health Maintenance Due Date Last Done Comments Hepatitis C Screening 1961 COVID-19 Vaccine (#1) 03/01/1962 Depression Screening 1973 BMI Counseling 1979 Preventative Health Evaluation 1979 DTap / Tdap / Td (1 - Tdap) 1980 Colon Cancer Screening (Colonoscopy) 2006 Shingrix-Zoster Vaccine (1 of 2) 2011 Influenza Vaccine (#1) 2024 RSV Adult > 60+ Yrs or Pregn ant (1 - 1-dose 75+ series) 2036 Hepatitis B Vaccines Aged Out No long er eligible based on patient's age to complete this topic Pneumococcal Vaccine Aged Out No long er eligible based on patient's age to complete this topic RSV Ped < 20 months Aged Out No longe r eligible based on patient's age to complete this topic Care Teams Fitting Supervisor Relationship Specialty Start Date End Date Erin Orozco DO PCP - General Gambreler Helper 07/28/18
== END 2024-12-20 09:12 | disposition home or self-care (01) ==
LOC: HO.HUSH 08:09
PROVIDERS: PCP Internal Medicine; Visit Provider Nurse Practitioner Family
DX: N32.89 Other specified disorders of bladder (principal); R39.15 Urgency of urination; N40.0 Benign prostatic hyperplasia without lower urinary tract symptoms; Z13.9 Encounter for screening, unspecified
CPT/HCPCS: 99204

== ENCOUNTER → 2024-12-20 08:08 | Outpatient (BNVA) | payer OTHER, SELFPAY | PROVIDERS: PCP Internal Medicine; Visit Provider Nurse Practitioner Family | DX: N40.1 Benign prostatic hyperplasia with lower urinary tract symptoms (principal); R33.8 Other retention of urine; N32.89 Other specified disorders of bladder; R39.15 Urgency of urination | CPT/HCPCS: 51798; 81003 ==

== ENCOUNTER 2025-01-17 09:20 | Outpatient (REF) | payer OTHER, SELFPAY ==
[2025-01-17 10:09] LABS: MANUAL DIFF FLAG NO
--- OUTSIDE RECORDS SUMMARY | 2025-01-17 10:13 | XMS_ITS | Encounter Summary ---
Author Organization [facility] Address [address] [place] [address] Care Team Providers Care Inner Tube Cutter Name Role Phone Erin Orozco DO Primary Care Pro vider [facility], Pcp Primary Care Provider Unavailabl e Reason for Visit * Reason Onset Date Comments Testing 01/01/2020 Shortness Of Breath 01/01/2020 Cough 01/01/2020 Encounter Details Date Type Department Care Team Description 01/01/2020 Telephone Adult Medicine [address] [id number] Erin Orozco DO Testing; Shortness Of Breath; Cough Social History Tobacco Use Types Packs/Day Years Used Date Smoking Tobacco: Never Smokeless Tobacco: Never Alcohol Use Standard Drinks/Week Comments Yes 0 (1 standard drink = 0.6 oz pur e alcohol) occ Physical Activity Answer Date Recorded On average, how many days pe r week do you engage in moderate to strenuous exercise (like walking fast, running, jogging, dancing, swimming, biking, or other activities that cause a light or heavy sweat)? 0 days 11/21/2020 On average, how many minutes do you engage in exercise at this level? Not asked Sex Assigned at Date Recorded Not on file documented as of this encounter Miscellaneous Notes * Telephone Encounter - Lilaina Richter R.N. - 01/05/2020 8:34 AM EDT Spoke with the daughter has had a cough for greater than a week. no longer coughing up secreations,does not have a fever now. Weak and laying in bed, a little sinus congestion, denies runny nose or PND, no N/V. Abdominal painis unknown, chest pain is unknown. Whole family is sick. Patient's mother passed yesterday and tested positive Wednesday. Need kittitian ball truing machine operator Audio visit for 01/04 at 11:30 am with Erin Johnson * Telephone Encounter - Samantha Dawkins - 01/02/2020 11:13 AM EDT Patient never spoke with a nurse , please call today * Telephone Encounter - Cb Díaz L.P.N. - 01/01/2020 1:14 PM EDT Spoke with Sabinoestefania She states a nurse tis call him now * Telephone Encounter - Tati Santos R.N. - 01/01/2020 1:04 PM EDT Pt has had Cough , fever for 3 - 4 Days, Daughter is concerned about covid 19 virus. Pt has not traveled and has not had any contacts who have traveled . Pt has had contact with known covid 19 pt ( caring for his mother who is hosptiliazed with known covid 19) . Pt has not visited er or any urgent care and has not been tested Several calls to pt using the interpretor service , he does not respond, [facility] , she states he did get the call but non one spoke to him, called back and he did not answer * Telephone Encounter - Renata Salcido - 01/01/2020 10:32 AM EDT Cathleen called [facility] Patient does not speak Tuvaluan Symptoms patient is having: cough chills sob For ALL patients calling to schedule any appointment (routine, sick visit, follow up, consult, etc.) in the outpatient setting please ask the following questions. ??? Do you have fever, cough or shortness of breath? YES His mother has tested positive, she is hospitalized now ??? Have you had close contact with someone with Coronavirus in the last 14 days? YES ??? Have you traveled abroad? NO ??? Have you been to [place] or in contact with anyone who has recently been in [place]? NO If YES to either, send the call to triage and do not book If pain or injury related was it due to an accident at work or from a motor vehicle accident? NO If yes, gather 3rd constitution party insurance information Date of accident/Injury: How long has patient had these symptoms?: few days PCP: Erin Johnson Payor: [employer] [place] / Plan: tribr $25 [place] 1 / Product Type: [employer] [id number] documented in this encounter Plan of Treatment Not on file documented as of this encounter Visit Diagnoses Not on filedocumented in this encounter Care Teams Inner Tube Cutter Relationship Specialty Start Date End Date Erin Orozco DO PCP - General Internal Medicine 12/25/13 06/04/22 [facility], Pcp PCP - General Internal Medicine 06/05/22 documented as of this encounter
--- OUTSIDE RECORDS SUMMARY | 2025-01-17 10:13 | XMS_ITS | Encounter Summary ---
Author Organization [facility] [employer] [facility] Address [address] [place] [address] Care Team Providers Care Eyelet Cutter Name Role Phone Erin Orozco DO Primary Care Pro vider Unavailable [facility], Pcp Primary Care Provider Unavailabl e Encounter Details Date Type Department Care Team Description 01/22/2020 Telephone Adult [address] [address] Erin Orozco DO Social History Tobacco Use Types Packs/Day Years [...] on file documented as of this encounter Plan of Treatment Not on file documented as of this encounter Visit Diagnoses Not on filedocumented in this encounter Care Teams Eyelet Cutter Relationship Specialty Start Date End Date Erin Orozco DO PCP - General Internal Medicine 12/25/13 06/04/22 [facility], Pcp PCP - General Internal Medicine 06/05/22 documented as of this encounter
--- OUTSIDE RECORDS SUMMARY | 2025-01-17 10:13 | XMS_ITS | Encounter Summary ---
Author Organization [facility] [employer] [facility] Address [address] [place] [address] Care Team Providers Care Credit Negotiator Name Role Phone Erin Orozco DO Primary Care Pro vider Unavailable [facility], Pcp Primary Care Provider Unavailabl e Encounter Details Date Type Department Care Team Description 07/24/2015 Release of Information Medical Records [address] [place] [id number] Abstract, Provider Social History Tobacco Use Types Packs/Day Years Used Date Smoking Tobacco: Never Smokeless Tobacco: Never Alcohol Use Standard Drinks/Week Comments Not Asked 0 (1 standard drink = 0.6 oz pur e alcohol) Physical Activity Answer Date Recorded On average, [...] on filedocumented in this encounter Care Teams Credit Negotiator Relationship Specialty Start Date End Date Erin Orozco DO PCP - General Internal Medicine 12/25/13 06/04/22 [facility], Pcp PCP - General Internal Medicine 06/05/22 documented as of this encounter
--- OUTSIDE RECORDS SUMMARY | 2025-01-17 10:13 | XMS_ITS | Encounter Summary ---
[facility] Organization [facility] Address [address] [place] [address] Care Team Providers Care Woolen Suiting Shrinker Name Role Phone Erin Orozco DO Primary Care Pro vider Unavailable [facility], Pcp Primary Care Provider Unavailabl e Reason for Visit * Reason Comments E-prescribe Rx Request Encounter Details Date Type Department Care Team Description 06/07/2021 Refill Adult Medicine [address] [address] Erin Orozco DO E-prescribe Rx Request Social History Tobacco Use Types Packs/Day Years [...] encounter Miscellaneous Notes * Telephone Encounter - Suzanna Medina M.A. - 06/10/2021 10:20 AM EDT Lab Results Component Value Date NA 138 10/14/2020 K 3.8 10/14/2020 CO2 27 10/14/2020 CL 105 10/14/2020 BUN 13 10/14/2020 CREAT 0.90 10/14/2020 GLU 144 10/14/2020 CA 9.4 10/14/2020 GFR > 60 10/14/[address] Camara 03/31/21 * Telephone Encounter - Buck Hdz - 06/10/2021 9:52 AM EDT Patient would like script to be: E-PRESCRIBED/FAXED TO PHARMACY ?? WHEN WAS THE PATIENT'S LAST APPOINTMENT IN ADULT MEDICINE? [id number] ?? WHEN WAS THE LAST TIME THE PATIENT SAW THEIR PCP? Same as above ?? Does patient have an upcoming appointment? No-unable to reach [facility] to call for appointment due to refill request, patient was previously left a but never called back to schedule an appointment, as well as update pcp ?? (THE MEDICATION REQUESTED IS ON THE MED LIST ABOVE) All of the medications requested were on the CURRENT MEDS list ?? Did you check the Pharmacy information above?: YES ?? Patient wants: 90 -day supply ?? Is this a mail order prescription request ? YES ?? If the refill is from a FAXED refill request what is the RX # listed on the fax? ?? Patients current insurance carrier is: Payor: [employer] [facility] [employer] / Plan: HMO $25 [place] 1 / Product Type: HMO [id number] ? documented in this encounter Plan of Treatment Not on file documented as of this encounter Visit Diagnoses Not on filedocumented in this encounter Care Teams Woolen Suiting Shrinker Relationship Specialty Start Date End Date Erin Orozco DO PCP - General Internal Medicine 12/25/13 06/04/22 [facility], Pcp PCP - General Internal Medicine 06/05/22 documented as of this encounter
--- OUTSIDE RECORDS SUMMARY | 2025-01-17 10:13 | XMS_ITS | Encounter Summary ---
Author Organization [facility] Address [address] [place] [address] Care Team Providers Care Geosciences Faculty Member Name Role Phone Erin Orozco DO Primary Care Pro vider Unavailable [facility], Pcp Primary Care Provider Unavailabl e Encounter Details Date Type Department Care Team Description 03/10/2021 Orders Only Adult Medicine [address] [address] Erin Orozco DO Preoperative examination; Screening for deficiency anemia Social History Tobacco Use Types Packs/Day Years [...] as of this encounter Plan of Treatment Scheduled Orders Name Type Priority Associated Diagnoses Orde r Schedule CBC (AUTO DIFF PLATELET) Lab Routine Preoperative examination Screening for deficiency anemia Expected: 03/10/2021 (Approximate), Expires: 03/10/2022 BASIC METABOLIC PANEL Lab Routine Preoperative examination Expected: 03/10/2021 (Approximate), Expires: 03/10/2022 documented as of this encounter Visit Diagnoses Diagnosis Preoperative examination Preoperative examination, unspecified Screening for deficiency anemia Screening for other and unspecified deficiency anemia documented in this encounter Care Teams Geosciences Faculty Member Relationship Specialty Start Date End Date Erin Orozco DO PCP - General Internal Medicine 12/25/13 06/04/22 [facility], Pcp PCP - General Internal Medicine 06/05/22 documented as of this encounter
--- OUTSIDE RECORDS SUMMARY | 2025-01-17 10:13 | XMS_ITS | Clinical Summary ---
Author Organization [facility] Address [address] [place] [address] Care Team Providers Care Document Control Coordinator Name Role Phone Erin Orozco DO Primary [...] 0 09/30/2020 Active ergocalciferol (VITAMIN D2) capsule 31529 units 0 01/03/2021 Active Cyanocobalamin (VITAMIN B-12) [...] age to complete this topic Care Teams Document Control Coordinator Relationship Specialty Start Date End Date Erin Orozco DO PCP - General Ceramics Teacher 07/28/18
--- OUTSIDE RECORDS SUMMARY | 2025-01-17 10:13 | XMS_ITS | Encounter Summary ---
Author Organization [facility] Address [address] [place] [address] Care Team Providers Care Advertising Agency Manager Name Role Phone Erin Orozco DO Primary Care Pro vider Unavailable [facility], Pcp Primary Care Provider Unavailabl e Encounter Details Date Type Department Care Team Description 09/19/2014 Pt. Non Urgent Medic al Question Adult Medicine [address] [address] Erin Orozco DO Social History Tobacco Use Types Packs/Day Years Used Date Smoking Tobacco: Never Alcohol Use Standard Drinks/Week Comments [...] on file documented as of this encounter Progress Notes * Adriana Lanza M.A. - 09/20/2014 8:10 AM ESTFrom: Amari Ramos To: Erin Chung DO Sent: 09/19/2014 5:53 PM EST Subject: follow up visits Hi Dr. Camara, My dad would like to ask when he should be doing his next labs, he said he had them every 4 months at the previous office, also he is complaining of headaches, frequent pain that starts at his neck and radiates all the way down his back and heart burning few times a week, he was wondering if you could schedule some tests for him to make sure nothing is going on. Thank you documented in this encounter Plan of Treatment Not on file documented as of this encounter Visit Diagnoses Not on filedocumented in this encounter Care Teams Advertising Agency Manager Relationship Specialty Start Date End Date Erin Orozco DO PCP - General Internal Medicine 12/25/13 06/04/22 [facility], Pcp PCP - General Internal Medicine 06/05/22 documented as of this encounter
--- OUTSIDE RECORDS SUMMARY | 2025-01-17 10:13 | XMS_ITS | Encounter Summary ---
Author Organization [facility] Address [address] [place] [address] Care Team Providers Care Money Market Dealer Name Role Phone Erin Orozco DO Primary Care Pro vider Unavailable [facility], Pcp Primary Care Provider Unavailabl e Reason for Visit * Reason Onset Date Comments LAB WORK 04/01/2021 Encounter Details Date Type Department Care Team Description 04/01/2021 Telephone Adult Medicine [address] [address] Erin Orozco DO LAB WORK Social History Tobacco Use Types Packs/Day Years [...] Assigned at Date Recorded Not on file COVID-19 Exposure Response Date Recorded In the last month, have you been in contact with someone who was confirmed or suspected to have Coronavirus / COVID-19? No / Unsure 03/31/2021 9:44 AM EDT documented as of this encounter Miscellaneous Notes * Telephone Encounter - Kitty Bunny - 04/01/2021 12:51 PM EDT Patient was given Lab slip by Dr. Tucker's office. I spoke with his son who stated he did have labsdone in [place]. When patient presents to our Lab office with a lab slip, the testing is sent to [facility] for results. Dr. Tucker's office should be able to obtain these from [facility]. Advised patient'sson his Dad was cleared for Surgery by PCP office. * Telephone Encounter - Tati Santos R.N. - 04/01/2021 11:41 AM EDT Does ortho need labs ? Michael did pre op and cleared pt , she did not orderlabs , stated She did not need them Pt is stating he needs labs before surgery on 04/10 * Telephone Encounter - Michelle Obrien - 04/01/2021 11:26 AM EDT Pt is wanting to know if we can request the labs from [facility]. States he called yesterday about this as well. Matter is pressing as he has an operation scheldued for the 10 of April and in order for it to be approved he needs Erin Johnson to confirm based on his labs. documented in this encounter Plan of Treatment Not on file documented as of this encounter Visit Diagnoses Not on filedocumented in this encounter Care Teams Money Market Dealer Relationship Specialty Start Date End Date Erin Orozco DO PCP - General Internal Medicine 12/25/13 06/04/22 [facility], Pcp PCP - General Internal Medicine 06/05/22 documented as of this encounter
--- OUTSIDE RECORDS SUMMARY | 2025-01-17 10:13 | XMS_ITS | Encounter Summary ---
Author Organization [facility] Address [address] [place] [address] Care Team Providers Care Corporate Counselor Name Role Phone Erin Orozco DO Primary Care Pro vider Unavailable [facility], Pcp Primary Care Provider Unavailabl e Encounter Details Date Type Department Care Team Description 10/15/2014 Orders Only Adult Medicine [address] [address] Erin Orozco DO Dyslipidemia (Primary Dx) Social History Tobacco Use Types Packs/Day Years [...] on file documented as of this encounter Results * TRANSAMINASE (SGPT)(ALT) UV- (07/23/2015 11:06 AM EDT) ALT( SGPT) 32 10 - 60 U/L 07/23/2015 2:53 PM EDT [facility] 07/23/2015 11:0 6 AM EDT 07/23/2015 11:06 AM EDT Erin Kellywiak Colasacco DO LAB Performing Organization Address City/State/[facility] Co de Phone Number [address] * TRANSAMINASE (SGOT)(AST) UV- (07/23/2015 11:06 AM EDT) AST (SGOT) 37 10 - 42 U/L 07/23/2015 2:53 PM EDT [facility] 07/23/2015 11:0 6 AM EDT 07/23/2015 11:06 AM EDT Erin Muñozak Colasacco DO LAB Performing Organization Address [facility] Co de Phone Number [address] * (ABNORMAL) LIPID PROFILE (07/23/2015 11:06 AM EDT) Cholesterol 193 0 - 200 mg/dL 07/23/2015 2:53 PM EDT [facility] TRIGLYCERIDES 361(H) 0 - 150 mg/dL 07/23/2015 2:53 PM EDT [facility] HDL CHOLESTEROL 30(L) >40 mg/dL 5 2:53 PM EDT [facility] LDL CALCULATED 91 0 - 100 mg/dL 07/23/2015 2:53 PM EDT [facility] TC-HDLC RATIO 6(H) 0.0 - 4.4 mg/dL 07/23/2015 2:53 PM EDT [facility] 07/23/2015 11:0 6 AM EDT 07/23/2015 11:06 AM EDT Erin Muñozak Colasacco DO LAB Performing Organization Address [facility] Co de Phone Number [address] documented in this encounter Visit Diagnoses Diagnosis Dyslipidemia- Primary Other and unspecified hyperlipidemia documented in this encounter Care Teams Corporate Counselor Relationship Specialty Start Date End Date Erin Orozco DO PCP - General Internal Medicine 12/25/13 06/04/22 [facility], Pcp PCP - General Internal Medicine 06/05/22 documented as of this encounter
--- OUTSIDE RECORDS SUMMARY | 2025-01-17 10:13 | XMS_ITS | Encounter Summary ---
Author Organization [facility] [employer] [facility] Address [address] [place] [address] Care Team Providers Care Stick Inserter Name Role Phone Erin Orozco DO Primary Care Pro vider Unavailable [facility], Pcp Primary Care Provider Unavailabl e Encounter Details Date Type Department Care Team Description 08/08/2018 Release of Information Medical Records [address] [place] [id number] Abstract, Provider Social History Tobacco Use Types [...] on filedocumented in this encounter Care Teams Stick Inserter Relationship Specialty Start Date End Date Erin Orozco DO PCP - General Internal Medicine 12/25/13 06/04/22 [facility], Pcp PCP - General Internal Medicine 06/05/22 documented as of this encounter
--- OUTSIDE RECORDS SUMMARY | 2025-01-17 10:13 | XMS_ITS | Encounter Summary ---
[facility] Organization [facility] Address [address] [place] [address] Care Team Providers Care Customer Contact Representative Name Role Phone Erin Orozco DO Primary Care Pro vider Unavailable [facility], Pcp Primary Care Provider Unavailabl e Reason for Visit * Reason Onset Date Comments Follow-up Appt Unavailable 03/12/2021 Encounter Details Date Type Department Care Team Description 03/12/2021 Telephone Pulmonology - Elizabeth [address] [facility] [address] [place] [address] Lauren Mccollum APRN [address] [place] [address] Follow-up Appt Unavailable Social History Tobacco Use Types Packs/Day Years [...] on filedocumented in this encounter Care Teams Customer Contact Representative Relationship Specialty Start Date End Date Erin Orozco DO PCP - General Internal Medicine 12/25/13 06/04/22 [facility], Pcp PCP - General Internal Medicine 06/05/22 documented as of this encounter
--- OUTSIDE RECORDS SUMMARY | 2025-01-17 10:13 | XMS_ITS | Encounter Summary ---
Author Organization [facility] Address [address] [place] [address] Care Team Providers Care Dehydrator Operator Name Role Phone Erin Orozco DO Primary Care Pro vider Unavailable [facility], Pcp Primary Care Provider Unavailabl e Reason for Visit * Reason Comments E-prescribe Rx Request Encounter Details Date Type Department Care Team Description 02/15/2020 Refill Adult Medicine [address] [address] Erin Orozco DO E-prescribe Rx Request Social [...] encounter Miscellaneous Notes * Telephone Encounter - Karishma Cheema M.A. - 02/15/2020 11:47 AM EDT Last ov 01/29/20 Next ov 04/29/20 * Telephone Encounter - Rosauraanderson Ovalles - 02/15/2020 11:30 AM EDT Patient would like script to be: E-PRESCRIBED/FAXED TO PHARMACY WHEN WAS THE PATIENT'S LAST APPOINTMENT IN ADULT MEDICINE? 01/29/20 WHEN WAS THE LAST TIME THE PATIENT SAW THEIR PCP? Same as above Does patient have an upcoming appointment? Yes 04/29/20 (THE MEDICATION REQUESTED IS ON THE MED LIST ABOVE) All of the medications requested were on the CURRENT MEDS list Did you check the Pharmacy information above?: YES Patient wants: 30 -day supply Is this a mail order prescription request ? NO If the refill is from a FAXED refill request what is the RX # listed on the fax? N/A Patients current insurance carrier is: Payor: [employer] [place] / Plan: [employer] $25 [place] 1 / Product Type: HMO [id number] documented in this encounter Plan of Treatment Not on file documented as of this encounter Visit Diagnoses Not on filedocumented in this encounter Care Teams Dehydrator Operator Relationship Specialty Start Date End Date Erin Orozco DO PCP - General Internal Medicine 12/25/13 06/04/22 [facility], Pcp PCP - General Internal Medicine 06/05/22 documented as of this encounter
--- OUTSIDE RECORDS SUMMARY | 2025-01-17 10:13 | XMS_ITS | Encounter Summary ---
Author Organization [facility] Address [address] [place] [address] Care Team Providers Care Pellet Post Inspector Name Role Phone Erin Orozco DO Primary Care Pro vider [facility]available [facility], [facility] Primary Care Provider Unavailabl e Encounter Details Date Type Department Care Team Description 09/23/2018 Release of Information Medical Records [address] [place] [id number] Abstract, Provider Social History Tobacco Use Types [...] on filedocumented in this encounter Care Teams Pellet Post Inspector Relationship Specialty Start Date End Date Erin Orozco DO PCP - General Internal Medicine 12/25/13 06/04/22 [facility], [facility] PCP - General Internal Medicine 06/05/22 documented as of this encounter
--- OUTSIDE RECORDS SUMMARY | 2025-01-17 10:13 | XMS_ITS | Encounter Summary ---
Author Organization [facility] Address [address] [place] [address] Care Team Providers Care Financial Institution Manager Name Role Phone Erin Orozco DO Primary Care Pro vider Unavailable [facility], Pcp Primary Care Provider Unavailabl e Encounter Details Date Type Department Care Team Description 07/23/2018 Telephone Adult Urgent Care - [address] [address] Erin Orozco DO Social History Tobacco Use [...] encounter Miscellaneous Notes * Telephone Encounter - Jolynn Delgadillo - 07/23/2018 1:19 PM EDT Opened in error documented in this encounter Plan of Treatment Not on file documented as of this encounter Visit Diagnoses Not on filedocumented in this encounter Care Teams Financial Institution Manager Relationship Specialty Start Date End Date Erin Orozco DO PCP - General Internal Medicine 12/25/13 06/04/22 [facility], Pcp PCP - General Internal Medicine 06/05/22 documented as of this encounter
--- OUTSIDE RECORDS SUMMARY | 2025-01-17 10:14 | XMS_ITS | Encounter Summary ---
Author Organization [facility] Address [address] [place] [address] Care Team Providers Care Departmental Buyer Name Role Phone Erin Orozco DO Primary Care Pro vider [facility], Pcp Primary Care Provider Unavailabl e Encounter Details Date Type Department Care Team Description 12/20/2007 SCAN Medical Records [address] [place] [address] Abstract, Provider Social History Tobacco Use Types Packs/Day Years Used Date Smoking Tobacco: Never Assessed Physical Activity Answer Date Recorded On average, [...] on file documented as of this encounter Procedures Procedure Name Priority Date/Time Associated Diagnosis Comments OUTSIDE NUCLEAR STRESS TEST Routine 12/20/2007 OUTSIDE NUCLEAR STRESS TEST Routine 12/20/2007 documented in this encounter Results * OUTSIDE NUCLEAR STRESS TEST (12/20/2007) Provider Abstract CARDIOLOGY * OUTSIDE NUCLEAR STRESS TEST (12/20/2007) Provider Abstract CARDIOLOGY documented in this encounter Visit Diagnoses Not on filedocumented in this encounter Care Teams Departmental Buyer Relationship Specialty Start Date End Date Erin Orozco DO PCP - General Internal Medicine 12/25/13 06/04/22 [facility], Pcp PCP - General Internal Medicine 06/05/22 documented as of this encounter
--- OUTSIDE RECORDS SUMMARY | 2025-01-17 10:14 | XMS_ITS | Encounter Summary ---
Author Organization [facility] Address [address] [place] [address] Care Team Providers Care Dough Machine Operator Name Role Phone Erin Orozco DO Primary Care Pro vider Unavailable [facility], Pcp Primary Care Provider Unavailabl e Reason for Visit * Reason Onset Date Comments Medication 05/08/2020 Encounter Details Date Type Department Care Team Description 05/08/2020 Telephone Adult Medicine [address] [address] Erin Orozco DO Medication Social History Tobacco Use Types Packs/Day Years [...] Miscellaneous Notes * Telephone Encounter - Suzanna Khanna M.A. - 06/05/2020 1:55 PM EDT Pharmacist/Alirio advised rx was for Metoprolol Succinate (Toprol XL) * Telephone Encounter - Erin Chung DO - 06/04/2020 6:44 PM EDT Yes to help with compliance * Telephone Encounter - Suzanna Khanna M.A. - 05/22/2020 4:44 PM EDT I spoke with Pharmacist re:clarification on Metoprolol rx. Pt has been taking Metoprolol Tartrate 50 mg 1 tablet daily for years but the last refill was sent in for Metoprolol Succinate 50 mg 1 tablet daily. They want to know if you changed it to Succinate or is it Supposed to be Tartrate? * Telephone Encounter - Erin Chung DO - 05/13/2020 2:19 PM EDT Can you see what we can help clarify? * Telephone Encounter - Karishma Cheema M.A. - 05/13/2020 11:42 AM EDT Please read message below and advise * Telephone Encounter - Carmen Larson - 05/08/2020 2:00 PM EDT Who is calling? A pharmacist: Pharmacy: Pharmacist Name: Pharmacy Phone # Name of the medication metoprolol (TOPROL XL) 50 MG 24 hr tablet What is the specific problem or interaction? Pharmacy sent fax asking for clarification on medication order #[id number] If the patient is having a problem with taking the med - how long has the problem been going on? N/A documented in this encounter Plan of Treatment Not on file documented as of this encounter Visit Diagnoses Not on filedocumented in this encounter Care Teams Dough Machine Operator Relationship Specialty Start Date End Date Erin Orozco DO PCP - General Internal Medicine 12/25/13 06/04/22 [facility], Pcp PCP - General Internal Medicine 06/05/22 documented as of this encounter
--- OUTSIDE RECORDS SUMMARY | 2025-01-17 10:14 | XMS_ITS | Encounter Summary ---
Author Organization [facility] Address [address] [place] [address] Care Team Providers Care Sash Clamp Operator Name Role Phone Erin Orozco DO Primary Care Pro vider Unavailable [facility], Pcp Primary Care Provider Unavailabl e Reason for Visit * Reason Onset Date Comments Sleep Study 03/11/2020 Encounter Details Date Type Department Care Team Description 03/11/2020 Telephone Pulmonology - [address] [place] [address] Radha Hernandez FNP [address] [place] [address] Sleep Study Social History Tobacco Use Types Packs/Day Years [...] encounter Miscellaneous Notes * Telephone Encounter - ULISES Díaz - 03/11/2020 1:[address] Harley 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 Has FU with Lauren on 04/09/2020. documented in this encounter Plan of Treatment Not on file documented as of this encounter Visit Diagnoses Not on filedocumented in this encounter Care Teams Sash Clamp Operator Relationship Specialty Start Date End Date Erin Orozco DO PCP - General Internal Medicine 12/25/13 06/04/22 [facility], Pcp PCP - General Internal Medicine 06/05/22 documented as of this encounter
[2025-01-17 10:21] LABS: Basophils Absolute Auto 0.1 X10*3/uL (0.0-0.2); Basophils Percent Auto 0.6 % (0-2); Eosinophils Absolute Auto 0.4 X10*3/uL (0.0-0.4); Eosinophils Percent Auto 4.4 % (0-4); Hematocrit 46.8 % (42.0-52.0); Hemoglobin 16.1 g/dl (14.0-18.0); Imm Gran Abs Auto 0.04 X10*3/uL (0.00-0.03); Imm Gran Pct Auto 0.5 % (0.0-0.4); Lymphocytes Absolute Auto 2.4 X10*3/uL (1.2-4.9); Lymphocytes Percent Auto 27.7 % (20-40); Mean Corpuscular HGB Conc 34.4 g/dl (31.0-36.0); Mean Corpuscular Hemoglobin 30.6 pg (27.0-33.0); Mean Corpuscular Volume 88.8 fL (80.0-98.0); Mean Platelet Volume 12.1 fL (9.4-12.4); Monocytes Absolute Auto 0.7 X10*3/uL (0.1-1.2); Monocytes Percent Auto 8.3 % (2-11); Neutrophils Absolute Auto 5.1 x10*3/uL (2.0-8.3); Neutrophils Percent Auto 58.5 % (45-73); Platelet Count 199 X10*3/uL (160-400); Red Blood Count 5.27 X10*6/uL (4.60-5.80); Red Cell Distribution Width 13.1 % (11.0-16.0); White Blood Count 8.6 X10*3/uL (4.8-10.8)
[2025-01-17 10:30] LABS: Estimated Average Glucose 146 mg/dL; Hemoglobin A1C 207.2114 umol/L; Hemoglobin A1c % 6.7 % (<6.0); Total Hemoglobin (HGBA1C) 4199.4768 umol/L
[2025-01-17 10:42] LABS: Alanine Aminotransferase 66 U/L (0-40); Albumin Level 4.6 g/dL (3.5-5.0); Alkaline Phosphatase 95 U/L (39-117); Anion Gap 14 (12-20); Aspartate Amino Transferase 54 U/L (5-37); Bilirubin Total 1.1 mg/dL (0.0-1.0); Blood Urea Nitrogen 17 mg/dL (9-16); Calcium 9.7 mg/dL (8.4-10.2); Carbon Dioxide 27 mmol/L (22-29); Chloride 106 mmol/L (96-108); Cholesterol 178 mg/dL (<200); Estimated Glomerular Filt Rate > 60; Glucose Fasting 163 mg/dL (60-99); HDL Cholesterol 34 mg/dL (>40); LDL Cholesterol Calculated 70 mg/dL (<100); Potassium 3.5 mmol/L (3.3-5.1); Sodium 143 mmol/L (135-145); Total Protein 7.2 g/dL (6.5-8.0); Triglycerides 370 mg/dL (<150)
[2025-01-17 14:11] LABS: Creatinine Urine 118.51 mg/dL; Microalbum/Creatinine Ratio Ur 27.8 ug/mg cr (<30)
== END 2025-01-17 09:21 | disposition home or self-care (01) ==
LOC: HO.HMGCLDS 09:20
PROVIDERS: PCP Internal Medicine; Visit Provider Internal Medicine
DX: E11.9 Type 2 diabetes mellitus without complications (principal); E78.5 Hyperlipidemia, unspecified; I10 Essential (primary) hypertension
CPT/HCPCS: 36415; 80053; 80061; 82043; 82570; 83036; 85025

== ENCOUNTER 2025-01-24 10:49 | Outpatient (AMB) | payer OTHER, SELFPAY ==
[2025-01-24 11:12] VITALS: BP 138/80; PULSE 61; RESP 18; TEMP 36.8; O2SAT 96; BMI 38.7
--- NOTE | 2025-01-24 11:12 | A.OFFPC_ITS ---
Vital Signs 01/24/25 11:12 Height 5 ft 9 in Weight 262 lb BMI 38.7 BP 138/80 Blood Pressure Location Lt brachial Position Sitting Respiration 18 Pulse 61 Pulse Source Pulse Oximeter Temp 98.3 F Temp Source Oral Pulse Oximetry (%) 96 Oxygen Delivery Method Room Air Intake Visit Reasons: 4 months follow up visit Intake Note: Pt is here today for 4 months follow up visit on labs. Allergies No Known Allergies Allergy (Verified 01/24/25 11:14) Medication List - Last Reconciled 01/24/25 by Gissell Garrett MD amlodipine 10 mg PO DAILY cyanocobalamin (vitamin B-12) 1,000 mcg sublingual DAILY ezetimibe (Zetia) 10 mg PO DAILY fenofibrate nanocrystallized 145 mg PO DAILY finasteride 5 mg PO DAILY 90 days hydrochlorothiazide 12.5 mg PO DAILY metformin 500 mg PO BID metoprolol succinate ER 100 mg PO BID olmesartan 20 mg PO BID rivaroxaban (Xarelto) 20 mg PO QPM rosuvastatin (Crestor) 40 mg PO DAILY tamsulosin 0.4 mg PO BEDTIME 90 days Tobacco use date assessed: 01/24/25 Dental Screening Dental Screen Date: 01/24/25 Did you have a dental visit in the last 12 months?: Yes Did you have a dental problem in the last 6 months where you did not have access to dental care?: No Was dental information given to patient?: Patient has dentist HPI 4 months follow up visit HPI Details Pt presents for f/u HTN, hyperlipid, DM 2 stable on meds PFSH Medical History Arrhythmia Sleep apnea Vitamin D deficiency Vitamin B 12 deficiency Hyperlipidemia HTN (hypertension) Annual physical exam Surgical History Total knee replacement status Social History Housing: House Patient Tobacco Use Status: Never used Tobacco e-Cigarette/Vaping Use: Never Used service: No Current occupational status: employed Cognitive needs: No Hearing needs: No Vision needs: No Questionnaire PHQ-9 Over the last 2 weeks, how often have you been bothered by any of the following problems? 1. Little interest or pleasure in doing things: not at all 2. Feeling down, depressed, or hopeless: not at all 3. Trouble falling or staying asleep, or sleeping too much: not at all 4. Feeling tired or having little energy: not at all 5. Poor appetite or overeating: not at all 6. Feeling bad about yourself - or that you are a failure or have let yourself or your family down: not at all 7. Trouble concentrating on things, such as reading the newspaper or watching television: not at all 8. Moving or speaking so slowly that other people could have noticed. Or the opposite - being so fidgety or restless that you have been moving around a lot more than usual: not at all 9. Thoughts that you would be better off or of hurting yourself in some way: not at all Total score: 0 Depression Screening Interpretation: Negative Depression Screening Done: Yes 65609 - PHQ-9 Billing: Yes Source: Developed by Drs. Dominic Ace, Latanya Cruz, Joe Morton and colleagues, with an educational monica from [employer]. Thrive Questionnaire Date Thrive assessed: 01/24/25 I am a: Patient What is your living situation today?: I have a steady place to live Within the past 12 months, did the food you bought not last and you didn't have the money to get more?: I choose not to answer this question Within the past 12 months, did you worry whether your food would run out before you got money to buy more?: I choose not to answer this question Do you have trouble paying for medicines?: I choose not to answer this question Do you have trouble getting transportation to medical appointments?: I choose not to answer this question Do you have trouble paying your heating and electricity bill?: I choose not to answer this question Do you have trouble taking care of your child, family member or friend?: I choose not to answer this question Do you have trouble with day-to-day activities such as bathing, preparing meals, shopping, managing finances, etc.?: I choose not to answer this question Are you currently unemployed and looking for a job?: I choose not to answer this question Are you interested in more education?: I choose not to answer this question Please select the resources that you would like help with: None Currently or been in a relationship where the following occur: I choose not to answer THRIVE Score: 0 AUDIT C Alcohol Use Questionnaire (AUDIT-C) 1. How often do you have a drink containing alcohol?: Never 3. How often do you have six or more drinks on one occasion?: Never Total Score: 0 MECHE-7 AMB Questionnaire MECHE-7 Date MECHE - 7 assessed: 01/24/25 Feeling nervous, anxious, or on edge: 0 = Not at all Not being able to stop or control worryin = Not at all Worrying too much about different things: 0 = Not at all Trouble relaxin = Not at all Being so restless that it is hard to sit still: 0 = Not at all Becoming easily annoyed or irritable: 0 = Not at all Feeling afraid as if something awful might happen: 0 = Not at all Total MECHE-7 score (0-4 normal; 5-9 mild; 10-14 moderate; 15-21 severe): 0 Source: Developed by Drs. Dominic Ace, Latanya Cruz, Joe Morton and colleagues, with an educational monica from [employer]. MECHE-7 Assessment Billing MECHE-7 Assessment Tool: MECHE-7 Assessment 07402 Review of Systems Const All systems reviewed & are unremarkable except as noted in HPI and below Reports no additional complaints Eyes Reports no additional complaints ENT Reports no additional complaints Card Reports no additional complaints Resp Reports no additional complaints GI Reports no additional complaints Reports no additional complaints Physical exam (Primary Care) Vital Signs: Last Vital Signs Temp 98.3 F 01/24/25 11:12 Pulse 61 01/24/25 11:12 Resp 18 01/24/25 11:12 BP 138/80 01/24/25 11:12 Pulse Ox 96 01/24/25 11:12 Oxygen Delivery Method Room Air 01/24/25 11:12 BMI result Body Mass Index 38.7 Tobacco/Smoking Status: Tobacco use Status Tobacco use date assessed 01/24/25 01/24/25 11:22 Patient Tobacco Use Status Never used Tobacco 01/24/25 11:22 e-Cigarette/Vaping Use Never Used 01/24/25 11:13 PHQ-9: PHQ-9 Score PHQ-9: Total score 0 01/24/25 11:22 Depression Screening Interpretation: Negative Thrive Assessment: Date of Thrive Assessment Date Thrive assessed 01/24/25 01/24/25 11:13 Currently or been in a relationship where the following occur: I choose not to answer Const General: no acute distress HENMT Head: Yes normal to inspection Mouth: Normal oral and palatal mucosa present Throat: Yes posterior oropharynx normal Eyes General: appearance normal, both eyes and all related structures Neck Neck: Yes no lymphadenopathy and Yes supple Resp Effort & Inspection: normal respiratory effort Auscultation: clear to auscultation bilaterally Cardio Rhythm: regular rhythm Heart sounds: S1 normal heart sound present and S2 normal heart sound present GI Inspection: Yes normal to inspection Coding Level of Care Code Est Pt Level 4 (17934) Diagnoses DM type 2 (diabetes mellitus, type 2) E11.9 Hyperlipidemia E78.5 HTN (hypertension) I10 Arrhythmia I49.9 Additional Codes MECHE-7 Assessment Billing - MECHE-7 Assessment Tool: MECHE-7 Assessment 61401 ([id number]) PHQ-9 - 94746 - PHQ-9 Billing: Yes ([id number]) Assessment & Plan Assessment & Plan (1) DM type 2 (diabetes mellitus, type 2): Code(s): E11.9 - Type 2 diabetes mellitus without complications Category: Medical Plan: A1c is 6.7 up from 5.7. ADA diet increase exercise weight loss discussed with the patient continue current medications follow-up in 3 months with a fasting labs before (2) Hyperlipidemia: Comment: Pt was seen by [facility] and prescribed fish oil in addition to statins Zetia and fenofibrate for familiar hyperlipidemia 07/2024 Code(s): E78.5 - Hyperlipidemia, unspecified Category: Medical Plan: Continue current medications (3) HTN (hypertension): Code(s): I10 - Essential (primary) hypertension Category: Medical Plan: Continue current medications (4) Arrhythmia: Comment: New onset AFib 1 episode in 09/25 Code(s): I49.9 - Cardiac arrhythmia, unspecified Category: Medical Plan: Continue Xarelto Orders: Orders Hemoglobin A1c 3 Months E11.9 - Type 2 diabetes mellitus without complications, E78.5 - Hyperlipidemia, unspecified, I10 - Essential (primary) hypertension Lipid Panel 3 Months E11.9 - Type 2 diabetes mellitus without complications, E78.5 - Hyperlipidemia, unspecified, I10 - Essential (primary) hypertension Comprehensive [place]. Panel Fast 3 Months E11.9 - Type 2 diabetes mellitus without complications, E78.5 - Hyperlipidemia, unspecified, I10 - Essential (primary) hypertension Microalbumin, Random (w Creat) 3 Months E11.9 - Type 2 diabetes mellitus without complications, E78.5 - Hyperlipidemia, unspecified, I10 - Essential (primary) hypertension
--- OUTSIDE RECORDS SUMMARY | 2025-01-24 12:55 | XMS_ITS | Clinical Summary ---
Author Organization [facility] Address [address] [place] [address] Care Team Providers Care Neon Sign Mechanic Name Role Phone Erin Orozco DO Primary [...] 0 09/30/2020 Active ergocalciferol (VITAMIN D2) capsule 62167 units 0 01/03/2021 Active Cyanocobalamin (VITAMIN B-12) [...] age to complete this topic Care Teams Neon Sign Mechanic Relationship Specialty Start Date End Date Erin Orozco DO PCP - General Section Leader 07/28/18
== END 2025-01-24 11:50 | disposition home or self-care (01) ==
LOC: HO.HMCC 10:50
PROVIDERS: PCP Internal Medicine; Visit Provider Internal Medicine
DX: E11.9 Type 2 diabetes mellitus without complications (principal); E78.5 Hyperlipidemia, unspecified; I10 Essential (primary) hypertension; I49.9 Cardiac arrhythmia, unspecified

== ENCOUNTER → 2025-01-24 10:49 | Outpatient (BNVA) | payer OTHER, SELFPAY | PROVIDERS: PCP Internal Medicine; Visit Provider Internal Medicine | DX: I10 Essential (primary) hypertension (principal); E78.5 Hyperlipidemia, unspecified; E11.9 Type 2 diabetes mellitus without complications; I49.9 Cardiac arrhythmia, unspecified; Z79.01 Long term (current) use of anticoagulants | CPT/HCPCS: 96127 ==

== ENCOUNTER 2025-03-22 08:59 | Outpatient (AMB) | payer OTHER, SELFPAY ==
--- NOTE | 2025-03-22 09:00 | MHC.OFFVIS ---
Intake Visit Reasons: 3m/ PVR Intake Note: patient presents today for follow up visit for urgency/enlarged prostate Urology Medication: finasteride,tamsulosin, Blood Thinner:Xarelto Antibiotic Allergies:none PVR:73 Aviation Tactical Readiness Officer Required: Yes Aviation Tactical Readiness Officer Services: Aviation Tactical Readiness Officer Present Aviation Tactical Readiness Officer Name: Shane [id number] Allergies No Known Allergies Allergy (Verified 03/22/25 09:41) Medication List - Last Reconciled 03/22/25 by ULISES Hernadez- amlodipine 10 mg PO DAILY cyanocobalamin (vitamin B-12) 1,000 mcg sublingual DAILY ezetimibe (Zetia) 10 mg PO DAILY fenofibrate nanocrystallized 145 mg PO DAILY finasteride 5 mg PO DAILY 90 days hydrochlorothiazide 12.5 mg PO DAILY metformin 500 mg PO BID metoprolol succinate ER 100 mg PO BID olmesartan 20 mg PO BID rivaroxaban (Xarelto) 20 mg PO QPM rosuvastatin (Crestor) 40 mg PO DAILY tamsulosin 0.4 mg PO BEDTIME 90 days HPI Comments Details: Amari is a very pleasant 64-year-old Spanish speaking male patient of Dr. Garrett. He has a past medical history of sleep apnea, arrhythmia, vitamin-D deficiency, hyperlipidemia, and hypertension. He presents to the office today for follow-up. Of note, patient was seen approximately 3 months ago as a new patient for urinary retention at which time he was started on Flomax and finasteride. In discussion with the patient today he reports significant improvement in lower urinary tract symptoms he had been experiencing. He currently denies any bothersome urinary issues or concerns. Previous workup has included PSA and imaging. PSA 09/26 0.7 The bladder is well distended. Mild diffuse irregularity and thickening of the bladder wall, bladder wall thickness of 0.4 cm. Pre void bladder volume is approximately 200 mL. Postvoid bladder volume is approximately 15 mL. Enlarged prostate with coarse calcifications and a volume of 50 mL. We discussed at length potential causes of lower urinary tract symptoms patient was experiencing. We discussed bladder triggers/irritants. We discussed further treatment options of lower urinary tract symptoms and risks and benefits of these treatment options. He denies incontinence, nocturia, hematuria, dysuria, foul smelling urine, changes to urinary stream, flank pain, fever, and or chills. In office urinalysis results reviewed with the patient today. PVR 73 mL. We discussed in office cystoscopy for further assessment evaluation if symptoms arise. All questions were answered. He otherwise offers no other issues or concerns at this time. [facility] Medical History Arrhythmia Sleep apnea Vitamin D deficiency Vitamin B 12 deficiency Hyperlipidemia HTN (hypertension) Annual physical exam Surgical History Total knee replacement status Social History Housing: House Patient Tobacco Use Status: Never used Tobacco e-Cigarette/Vaping Use: Never Used service: No Current occupational status: employed Cognitive needs: No Hearing needs: No Vision needs: No Review of Systems Const All systems reviewed & are unremarkable except as noted in HPI and below Physical Exam Const General: cooperative, healthy appearing, comfortable, no acute distress, well developed, alert and awake Orientation/consciousness: patient oriented x3 Limitations: language barrier HEENT Head: Yes normal to inspection, Yes normocephalic and Yes atraumatic Ears: hearing grossly normal bilaterally Eyes General: appearance normal, both eyes and all related structures Neck Neck: Yes normal visual inspection and Yes trachea midline Chest Chest palpation & inspection: normal inspection of the chest Resp Effort & Inspection: normal respiratory effort and able to speak in complete sentences Cardio Rate: regular rate GI Inspection: Yes normal to inspection General: Yes no CVA tenderness Back/Spine/Pelvis Back: no CVA tenderness Skin General skin exam: no rashes or lesions noted Neuro General: patient oriented x3 Extrem General: Yes normal to inspection Psych Appearance: grossly normal and well kempt Mental Status: mental status grossly normal Speech and movement: Normal speech and movement present and Clear speech present Affect: normal affect Attitude: cooperative Thought process: Normal thought process present Thought content: Normal thought content present Insight: Fair insight present (Psych) Judgement: Fair judgement present (Psych) Results AMB Urinalysis, Automated UA Leukoctes 0 Preeti/uL Last Edit by Opal Brown MA on 03/22/25 09:13 UA Nitrite Negative Last Edit by Opal Brown MA on 03/22/25 09:13 UA Urobilinogen 0.2 mg/dL Last Edit by Opal Brown MA on 03/22/25 09:13 UA Protein 15 mg/dL Last Edit by Opal Brown, MA on 03/22/25 09:13 UA pH 6.0 Last Edit by Opal Brown, MA on 03/22/25 09:13 UA Blood 0 Jesse/uL Last Edit by Opal Brown, MA on 03/22/25 09:13 UA Specific [place] 1.025 Last Edit by Opal Brown, MA on 03/22/25 09:13 UA Ketone Negative Last Edit by Opal Brown, MA on 03/22/25 09:13 UA Bilirubin 0 mg/dL Last Edit by Opal Brown, MA on 03/22/25 09:13 UA Glucose 0 mg/dL Last Edit by Opal Brown, [place] on 03/22/25 09:13 Results Reviewed Results Reviewed: Laboratory Last Values Urine pH (Auto) 6.0 03/22/25 09:07 Specific [place] (Auto) 1.025 03/22/25 09:07 Urine Protein (Auto) 15 mg/dL 03/22/25 09:07 Glucose (UA)(Auto) 0 mg/dL 03/22/25 09:07 Urine Ketones (Auto) Negative 03/22/25 09:07 Urine Blood (Auto) 0 Jesse/uL 03/22/25 09:07 Urine Nitrite (Auto) Negative 03/22/25 09:07 Urine Bilirubin (Auto) 0 mg/dL 03/22/25 09:07 Urine Urobilinogen (Auto) 0.2 mg/dL 03/22/25 09:07 Leukocyte Esterase (Auto) 0 Preeti/uL 03/22/25 09:07 Assessment & Plan Assessment & Plan (1) Enlarged prostate: Code(s): N40.0 - Benign prostatic hyperplasia without lower urinary tract symptoms Category: Medical (2) BPH (benign prostatic hyperplasia): Code(s): N40.0 - Benign prostatic hyperplasia without lower urinary tract symptoms Category: Medical (3) Urinary urgency: Code(s): R39.15 - Urgency of urination Category: Medical (4) 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 PVR 73 mL. Will continue with surveillance monitoring Continue finasteride and Flomax as prescribed. Patient currently denies any bothersome urinary issues or concerns. He reports be happy with current voiding parameters. We discussed potential near future in office cystoscopy if symptoms arise Will obtain PSA in 6 months. Follow-up in 6 months with PSA and PVR; or sooner with any issues, concerns, and or questions. Orders: Orders AMB Post Void Residual by ultrasound Today N40.0 - Benign prostatic hyperplasia without lower urinary tract symptoms AMB Urinalysis Automated Today Z13.9 - Encounter for screening, unspecified Prostate Specific Antigen 6 Months N40.0 - Benign prostatic hyperplasia without lower urinary tract symptoms Medications: Refilled tamsulosin 0.4 mg PO BEDTIME 90 caps 2RF 90 days N40.1 - Benign prostatic hyperplasia with lower urinary tract symptoms finasteride 5 mg PO DAILY 90 tabs 3RF 90 days N32.0 - Bladder-neck obstruction Patient Instructions: The patient had an opportunity to ask questions regarding the treatment plan. All questions were answered. Physical exam, labs, and imaging were discussed and reviewed in detail. As well as risks, benefits, and discussion of treatment choices. No major barriers to understanding were identified. The patient expressed understanding and agreement with the above treatment plan. The patient was made aware they should contact our office by phone for worsening of their current condition, the appearance of new symptoms, or with any questions or concerns. Compliance is encouraged with any medications and follow up testing that is ordered. It is a privilege to be allowed the opportunity to participate in? your urological care.? Again, if you have any questions or concerns If you have any questions or concerns please do not hesitate to contact me. The office is [phone]. This note is constructed using voice recognition software. While every effort has been made to ensure accuracy airbrush painter errors may have been included. Yours sincerely, PRASHANT Hernadez Coding Level of Care Code Est Pt Level 3 (13874) Complex EM visit Add On G2211 Diagnoses Enlarged prostate N40.0 BPH (benign prostatic hyperplasia) N40.0 Urinary urgency R39.15 Bladder trabeculation N32.89 Urinary retention R33.9
--- OUTSIDE RECORDS SUMMARY | 2025-03-22 09:34 | XMS_ITS | Clinical Summary ---
Author Organization [facility] Address [address] [place] [address] Care Team Providers Care Business Office Assistant Name Role Phone Erin Orozco DO Primary [...] 0 09/30/2020 Active ergocalciferol (VITAMIN D2) capsule 75400 units 0 01/03/2021 Active Cyanocobalamin (VITAMIN B-12) [...] Vaccine (1 of 2) 2011 Influenza Vaccine (Season Ended) 2025 RSV Adult > 60+ Yrs or Pregn [...] age to complete this topic Care Teams Business Office Assistant Relationship Specialty Start Date End Date Erin Orozco DO PCP - General Coremaking Machine Setter 07/28/18
== END 2025-03-22 09:36 | disposition home or self-care (01) ==
PROVIDERS: PCP Internal Medicine; Visit Provider Nurse Practitioner Family
DX: N40.0 Benign prostatic hyperplasia without lower urinary tract symptoms (principal); R39.15 Urgency of urination; N32.89 Other specified disorders of bladder; R33.9 Retention of urine, unspecified; Z13.9 Encounter for screening, unspecified
CPT/HCPCS: 99213; G2211

== ENCOUNTER → 2025-03-22 08:59 | Outpatient (BNVA) | payer OTHER, SELFPAY | PROVIDERS: PCP Internal Medicine; Visit Provider Nurse Practitioner Family | DX: N40.0 Benign prostatic hyperplasia without lower urinary tract symptoms (principal); R39.15 Urgency of urination; N32.89 Other specified disorders of bladder; R33.9 Retention of urine, unspecified | CPT/HCPCS: 81003 ==

== ENCOUNTER 2025-04-20 09:16 | Outpatient (REF) | payer OTHER, SELFPAY ==
--- OUTSIDE RECORDS SUMMARY | 2025-04-20 09:21 | XMS_ITS | Clinical Summary ---
Author Organization [facility] Address [address] [place] [address] Care Team Providers Care Director Geothermal Operations Name Role Phone Erin Orozco DO Primary [...] 0 09/30/2020 Active ergocalciferol (VITAMIN D2) capsule 60641 units 0 01/03/2021 Active Cyanocobalamin (VITAMIN B-12) [...] (1 of 2) 2011 Influenza Vaccine (#1) 2025 RSV Adult > 60+ Yrs or [...] age to complete this topic Care Teams Director Geothermal Operations Relationship Specialty Start Date End Date Erin Orozco DO PCP - General Principal Architectural Firm 07/28/18
[2025-04-20 10:31] LABS: Hemoglobin A1C 211.6053 umol/L; Total Hemoglobin (HGBA1C) 4082.4391 umol/L
[2025-04-20 11:22] LABS: Alanine Aminotransferase 70 U/L (0-40); Albumin Level 4.5 g/dL (3.5-5.0); Alkaline Phosphatase 104 U/L (39-117); Anion Gap 15 (12-20); Aspartate Amino Transferase 55 U/L (5-37); Blood Urea Nitrogen 14 mg/dL (9-16); Calcium 9.0 mg/dL (8.4-10.2); Carbon Dioxide 24 mmol/L (22-29); Chloride 107 mmol/L (96-108); Cholesterol 201 mg/dL (<200); Estimated Glomerular Filt Rate > 60; HDL Cholesterol 25 mg/dL (>40); Potassium 3.5 mmol/L (3.3-5.1); Sodium 142 mmol/L (135-145); Total Protein 7.0 g/dL (6.5-8.0); Triglycerides 697 mg/dL (<150)
[2025-04-20 13:33] LABS: Microalbum/Creatinine Ratio Ur 37.4 ug/mg cr (<30)
== END 2025-04-20 09:17 | disposition home or self-care (01) ==
LOC: HO.HMGCLDS 09:16
PROVIDERS: PCP Internal Medicine; Visit Provider Internal Medicine
DX: E11.9 Type 2 diabetes mellitus without complications (principal); E78.5 Hyperlipidemia, unspecified; I10 Essential (primary) hypertension
CPT/HCPCS: 36415; 80053; 80061; 82043; 82570; 83036

== ENCOUNTER 2025-04-25 09:21 | Outpatient (AMB) | payer OTHER, SELFPAY ==
[2025-04-25 09:38] VITALS: BP 132/86; PULSE 85; RESP 20; TEMP 36.8; O2SAT 98; BMI 39.0
--- NOTE | 2025-04-25 09:38 | A.OFFPC_ITS ---
Vital Signs 04/25/25 09:38 Height 5 ft 9 in Weight 264 lb BMI 39.0 BP 132/86 Blood Pressure Location Lt brachial Position Sitting Respiration 20 Pulse 85 Pulse Source Pulse Oximeter Temp 98.2 F Temp Source Oral Pulse Oximetry (%) 98 Oxygen Delivery Method Room Air Intake Visit Reasons: 3mfollow up Intake Note: Pt is here today for a 3 months follow up visit. Allergies No Known Allergies Allergy (Verified 04/25/25 09:38) Medication List - Last Reconciled 04/25/25 by Gissell Garrett MD amlodipine 10 mg PO DAILY cyanocobalamin (vitamin B-12) 1,000 mcg sublingual DAILY ezetimibe (Zetia) 10 mg PO DAILY fenofibrate nanocrystallized 145 mg PO DAILY finasteride 5 mg PO DAILY 90 days hydrochlorothiazide 12.5 mg PO DAILY metformin 500 mg PO BID metoprolol succinate ER 100 mg PO BID olmesartan 20 mg PO BID rivaroxaban (Xarelto) 20 mg PO QPM rosuvastatin (Crestor) 40 mg PO DAILY tamsulosin 0.4 mg PO BEDTIME 90 days Tobacco use date assessed: 04/25/25 Dental Screening Dental Screen Date: 04/25/25 Did you have a dental visit in the last 12 months?: Yes Did you have a dental problem in the last 6 months where you did not have access to dental care?: No Was dental information given to patient?: Patient has dentist HPI 3mfollow up HPI Details Patient presents for the follow-up on hypertension type 2 diabetes hyperlipidemia. He is not sure if he has been taking all his medications. BPH symptoms are better on tamsulosin and finasteride and patient is established with urologist [facility] Medical History Arrhythmia Sleep apnea Vitamin D deficiency Vitamin B 12 deficiency Hyperlipidemia HTN (hypertension) Annual physical exam Surgical History Total knee replacement status Social History Housing: House Patient Tobacco Use Status: Never used Tobacco e-Cigarette/Vaping Use: Never Used Second Hand Smoke Exposure: No service: No Current occupational status: employed Cognitive needs: No Hearing needs: No Vision needs: No Questionnaire Thrive Questionnaire Date Thrive assessed: 01/24/25 AUDIT C Alcohol Use Questionnaire (AUDIT-C) 1. How often do you have a drink containing alcohol?: Never 3. How often do you have six or more drinks on one occasion?: Never Total Score: 0 MECHE-7 AMB Questionnaire MECHE-7 Date MECHE - 7 assessed: 01/24/25 Source: Developed by Drs. Dominic Ace, Latanya Cruz, Joe Morton and colleagues, with an educational monica from [employer]. Review of Systems Const All systems reviewed & are unremarkable except as noted in HPI and below Eyes Reports no additional complaints ENT Reports no additional complaints Card Reports no additional complaints Resp Reports no additional complaints GI Reports no additional complaints Reports no additional complaints Physical exam (Primary Care) Vital Signs: Last Vital Signs Temp 98.2 F 04/25/25 09:38 Pulse 85 04/25/25 09:38 Resp 20 04/25/25 09:38 BP 132/86 04/25/25 09:38 Pulse Ox 98 04/25/25 09:38 Oxygen Delivery Method Room Air 04/25/25 09:38 BMI result Body Mass Index 39.0 Tobacco/Smoking Status: Tobacco use Status Tobacco use date assessed 04/25/25 04/25/25 09:39 Patient Tobacco Use Status Never used Tobacco 04/25/25 09:39 e-Cigarette/Vaping Use Never Used 04/25/25 09:39 Thrive Assessment: Date of Thrive Assessment Date Thrive assessed 01/24/25 04/25/25 09:39 Const General: no acute distress HENMT Head: Yes normal to inspection Eyes General: appearance normal, both eyes and all related structures Neck Neck: Yes supple Resp Effort & Inspection: normal respiratory effort Auscultation: clear to auscultation bilaterally Cardio Rhythm: regular rhythm Heart sounds: S1 normal heart sound present and S2 normal heart sound present GI Inspection: Yes normal to inspection Palpation (GI): Soft to palpation Percussion: Yes normal to percussion Auscultation: normal bowel sounds Coding Level of Care Code Est Pt Level 4 (92405) Complex EM visit Add On G2211 Diagnoses HTN (hypertension) I10 Hyperlipidemia E78.5 DM type 2 (diabetes mellitus, type 2) E11.9 Assessment & Plan Assessment & Plan (1) HTN (hypertension): Code(s): I10 - Essential (primary) hypertension Category: Medical Plan: Continue current medications (2) Hyperlipidemia: Comment: Pt was seen by [facility] and prescribed fish oil in addition to statins Zetia and fenofibrate for familiar hyperlipidemia 07/2024 Code(s): E78.5 - Hyperlipidemia, unspecified Category: Medical Plan: Triglycerides are very high. Patient was advised to check his medications at home. Refills on all medications sent to the pharmacy. (3) DM type 2 (diabetes mellitus, type 2): Code(s): E11.9 - Type 2 diabetes mellitus without complications Category: Medical Plan: A1c is 6.9, ADA diet increase physical activity weight loss discussed with the patient he was advised to increase metformin to 2 tablets a day, he will follow- up in 3 months with a fasting labs Orders: Orders Comprehensive [place]. Panel Fast 3 Months E11.9 - Type 2 diabetes mellitus without complications, E78.5 - Hyperlipidemia, unspecified, I10 - Essential (primary) hypertension Lipid Panel 3 Months E11.9 - Type 2 diabetes mellitus without complications, E78.5 - Hyperlipidemia, unspecified, I10 - Essential (primary) hypertension Complete Blood Count Auto Diff 3 Months E11.9 - Type 2 diabetes mellitus without complications, E78.5 - Hyperlipidemia, unspecified, I10 - Essential (primary) hypertension Microalbumin, Random (w Creat) 3 Months E11.9 - Type 2 diabetes mellitus without complications, E78.5 - Hyperlipidemia, unspecified, I10 - Essential (primary) hypertension Hemoglobin A1c 3 Months E11.9 - Type 2 diabetes mellitus without complications, E78.5 - Hyperlipidemia, unspecified, I10 - Essential (primary) hypertension Referrals Dermatology Referral D23.9 - Other benign neoplasm of skin, unspecified Medications: Refilled fenofibrate nanocrystallized 145 mg PO DAILY 90 tabs 3RF finasteride 5 mg PO DAILY 90 tabs 3RF 90 days N32.0 - Bladder-neck obstruction metformin 500 mg PO BID 360 tabs 3RF metoprolol succinate ER 100 mg PO BID 180 tabs 3RF rosuvastatin (Crestor) 40 mg PO DAILY 90 tabs 3RF hydrochlorothiazide 12.5 mg PO DAILY 90 tabs 3RF ezetimibe (Zetia) 10 mg PO DAILY 90 tabs 3RF olmesartan 20 mg PO BID 180 tabs 3RF amlodipine 10 mg PO DAILY 90 tabs 3RF Discontinued cyanocobalamin (vitamin B-12) Discontinued Reason: Doctor's Order 1,000 mcg sublingual DAILY 90 tabs 3RF
--- OUTSIDE RECORDS SUMMARY | 2025-04-25 09:51 | XMS_ITS | Clinical Summary ---
Author Organization [facility] Address [address] [place] [address] Care Team Providers Care Dry Curer Name Role Phone Erin Orozco DO Primary [...] 0 09/30/2020 Active ergocalciferol (VITAMIN D2) capsule 37825 units 0 01/03/2021 Active Cyanocobalamin (VITAMIN B-12) [...] age to complete this topic Care Teams Dry Curer Relationship Specialty Start Date End Date Erin Orozco DO PCP - General Corporate Giving Manager 07/28/18
--- OUTSIDE RECORDS SUMMARY | 2025-04-25 09:52 | XMS_ITS ---
Author Name [facility] Organization Unknown Care Team Organization Name Specialty Phone Email Start Date End Da te [facility] Termed, PROVIDER Primary Care 08/11/202205/04
== END 2025-04-25 10:32 | disposition home or self-care (01) ==
LOC: HO.HMCC 09:22
PROVIDERS: PCP Internal Medicine; Visit Provider Internal Medicine
DX: I10 Essential (primary) hypertension (principal); E78.5 Hyperlipidemia, unspecified; E11.9 Type 2 diabetes mellitus without complications

== ENCOUNTER 2025-09-06 11:28 | Outpatient (REF) | payer OTHER, SELFPAY ==
[2025-09-06 13:00] LABS: MANUAL DIFF FLAG NO
[2025-09-06 13:07] LABS: Hematocrit 49.7 % (42.0-52.0); Hemoglobin 16.7 g/dl (14.0-18.0); Imm Gran Abs Auto 0.03 X10*3/uL (0.00-0.03); Imm Gran Pct Auto 0.3 % (0.0-0.4); Lymphocytes Absolute Auto 2.3 X10*3/uL (1.2-4.9); Mean Corpuscular HGB Conc 33.6 g/dl (31.0-36.0); Mean Corpuscular Hemoglobin 30.1 pg (27.0-33.0); Mean Corpuscular Volume 89.7 fL (80.0-98.0); NRBC Abs Auto 0.000 X10*3/uL (0.0-0.012); NRBC Pct Auto 0.0 /100WBC (0.0-0.2); Platelet Count 204 X10*3/uL (160-400); Red Blood Count 5.54 X10*6/uL (4.60-5.80); White Blood Count 9.0 X10*3/uL (4.8-10.8)
[2025-09-06 13:19] LABS: Alanine Aminotransferase 74 U/L (0-40); Albumin Level 4.9 g/dL (3.5-5.0); Alkaline Phosphatase 91 U/L (39-117); Anion Gap 11 (12-20); Aspartate Amino Transferase 80 U/L (5-37); Blood Urea Nitrogen 17 mg/dL (9-16); Calcium 9.5 mg/dL (8.4-10.2); Carbon Dioxide 28 mmol/L (22-29); Chloride 106 mmol/L (96-108); Cholesterol 181 mg/dL (<200); Estimated Glomerular Filt Rate > 60; HDL Cholesterol 35 mg/dL (>40); Potassium 3.7 mmol/L (3.3-5.1); Sodium 141 mmol/L (135-145); Total Protein 7.5 g/dL (6.5-8.0); Triglycerides 220 mg/dL (<150)
[2025-09-06 14:16] LABS: Microalbum/Creatinine Ratio Ur 18.2 ug/mg cr (<30)
== END 2025-09-06 11:29 | disposition home or self-care (01) ==
LOC: HO.HMGCLDS 11:28
PROVIDERS: Absent Provider Nurse Practitioner Family; PCP Internal Medicine; Visit Provider Internal Medicine
DX: E11.9 Type 2 diabetes mellitus without complications (principal); I10 Essential (primary) hypertension; E78.5 Hyperlipidemia, unspecified
CPT/HCPCS: 36415; 80053; 80061; 82043; 82570; 83036; 85025

== ENCOUNTER 2025-09-21 09:29 | Outpatient (AMB) | payer OTHER, SELFPAY ==
--- NOTE | 2025-09-21 09:43 | A.OFFPC_ITS ---
Vital Signs 09/21/25 09:48 Height 5 ft 9 in Weight 266 lb BMI 39.3 BP 128/76 Blood Pressure Location Lt brachial Position Sitting Respiration 18 Pulse 78 Pulse Source Pulse Oximeter Temp 98.1 F Temp Source Oral Pulse Oximetry (%) 98 Oxygen Delivery Method Room Air Intake Visit Reasons: PE Intake Note: Pt is here today for PE. Behavioral Health Therapist Required: No Allergies No Known Allergies Allergy (Verified 09/21/25 09:51) Medication List - Last Reconciled 09/21/25 by Gissell Garrett MD amlodipine 10 mg PO DAILY ezetimibe (Zetia) 10 mg PO DAILY fenofibrate nanocrystallized 145 mg PO DAILY finasteride 5 mg PO DAILY 90 days hydrochlorothiazide 12.5 mg PO DAILY metformin 500 mg PO BID metoprolol succinate ER 100 mg PO BID Mounjaro (tirzepatide) 2.5 mg (0.5 mL) subcut QWEEK NS olmesartan 20 mg PO BID rivaroxaban (Xarelto) 20 mg PO QPM rosuvastatin (Crestor) 40 mg PO DAILY tamsulosin 0.4 mg PO BEDTIME 90 days Tobacco use date assessed: 09/21/25 Fall risk assessment: No Falls in past year Last assessed Fall Risk: 09/21/25 Dental Screening Dental Screen Date: 04/25/25 HPI PE HPI Details Pt presents for PE PFSH Medical History (Updated 09/21/25 @ 13:11 by Gissell Garrett MD) BPH (benign prostatic hyperplasia) DM type 2 (diabetes mellitus, type 2) Colon cancer screening Sleep apnea Vitamin D deficiency Vitamin B 12 deficiency Hyperlipidemia HTN (hypertension) Annual physical exam Surgical History Total knee replacement status Social History Housing: House Patient Tobacco Use Status: Never used Tobacco e-Cigarette/Vaping Use: Never Used Second Hand Smoke Exposure: No service: No Current occupational status: employed Cognitive needs: No Hearing needs: No Vision needs: No Questionnaire Thrive Questionnaire Date Thrive assessed: 01/24/25 MECHE-7 AMB Questionnaire MECHE-7 Date MECHE - 7 assessed: 01/24/25 Source: Developed by Latanya RodriguesW. Anthony, Joe Morton and colleagues, with an educational monica from [employer]. Review of Systems Const All systems reviewed & are unremarkable except as noted in HPI and below Eyes Reports no additional complaints ENT Reports no additional complaints Card Reports no additional complaints Resp Reports no additional complaints GI Reports no additional complaints Reports no additional complaints Physical exam (Primary Care) Vital Signs: Last Vital Signs Temp 98.1 F 09/21/25 09:48 Pulse 78 09/21/25 09:48 Resp 18 09/21/25 09:48 BP 128/76 09/21/25 09:48 Pulse Ox 98 09/21/25 09:48 Oxygen Delivery Method Room Air 09/21/25 09:48 BMI result Body Mass Index 39.3 Tobacco/Smoking Status: Tobacco use Status Tobacco use date assessed 09/21/25 09/21/25 09:49 Patient Tobacco Use Status Never used Tobacco 09/21/25 09:44 e-Cigarette/Vaping Use Never Used 09/21/25 09:44 Thrive Assessment: Date of Thrive Assessment Date Thrive assessed 01/24/25 09/21/25 09:44 Const General: no acute distress HENMT Head: Yes normal to inspection Ears: hearing grossly normal bilaterally Face and sinus: Yes normal facial exam Mouth: Normal oral and palatal mucosa present Eyes General: appearance normal, both eyes and all related structures Neck Neck: Yes no lymphadenopathy and Yes supple Resp Effort & Inspection: normal respiratory effort Auscultation: clear to auscultation bilaterally Cardio Rhythm: regular rhythm Heart sounds: S1 normal heart sound present and S2 normal heart sound present GI Inspection: Yes normal to inspection Palpation (GI): Soft to palpation Percussion: Yes normal to percussion Auscultation: normal bowel sounds Coding Level of Care Code Est Pt Prev Care 40-64y(07874) Diagnoses DM type 2 (diabetes mellitus, type 2) E11.9 Hyperlipidemia E78.5 HTN (hypertension) I10 Colon cancer screening Z12.11 Annual physical exam Z00.00 Assessment & Plan Assessment & Plan (1) DM type 2 (diabetes mellitus, type 2): Code(s): E11.9 - Type 2 diabetes mellitus without complications Category: Medical Plan: A1c is 6.8, ADA diet increase exercise weight loss discussed with the patient Mounjaro 2.5 mg weekly will be added to metformin. Side effects discussed with the patient. He will follow-up in 3 months with a fasting labs before (2) Hyperlipidemia: Comment: Continue fish oil in addition to statins Zetia and fenofibrate for familiar hyperlipidemia 07/2024 Code(s): E78.5 - Hyperlipidemia, unspecified Category: Medical Plan: Continue current medications (3) HTN (hypertension): Code(s): I10 - Essential (primary) hypertension Category: Medical Plan: Continue current medications (4) Colon cancer screening: Comment: Negative 10/2024 Cologuard Code(s): Z12.11 - Encounter for screening for malignant neoplasm of colon Category: Medical Plan: Up-to-date (5) Annual physical exam: Code(s): Z00.00 - Encounter for general adult medical examination without abnormal f indings Category: Medical Plan: Well-balanced diet regular physical activity weight loss discussed with the patient. He will continue current medications and return in 3 months Orders: Orders Comprehensive [place]. Panel Fast 3 Months E11.9 - Type 2 diabetes mellitus without complications, E78.5 - Hyperlipidemia, unspecified, I10 - Essential (primary) hypertension Hemoglobin A1c 3 Months E11.9 - Type 2 diabetes mellitus without complications, E78.5 - Hyperlipidemia, unspecified, I10 - Essential (primary) hypertension Microalbumin, Random (w Creat) 3 Months E11.9 - Type 2 diabetes mellitus without complications, E78.5 - Hyperlipidemia, unspecified, I10 - Essential (primary) hypertension UA w Microscopic 3 Months E11.9 - Type 2 diabetes mellitus without complications, E78.5 - Hyperlipidemia, unspecified, I10 - Essential (primary) hypertension Complete Blood Count Auto Diff 3 Months E11.9 - Type 2 diabetes mellitus without complications, E78.5 - Hyperlipidemia, unspecified, I10 - Essential (primary) hypertension Lipid Panel 3 Months E11.9 - Type 2 diabetes mellitus without complications, E78.5 - Hyperlipidemia, unspecified, I10 - Essential (primary) hypertension Medications: New Mounjaro (tirzepatide) 2.5 mg (0.5 mL) subcut QWEEK 6 mL 0RF NS
[2025-09-21 09:48] VITALS: BP 128/76; PULSE 78; RESP 18; TEMP 36.7; O2SAT 98; BMI 39.3
== END 2025-09-21 13:12 | disposition home or self-care (01) ==
LOC: HO.HMCC 09:29
PROVIDERS: PCP Internal Medicine; Visit Provider Internal Medicine
DX: Z00.00 Encounter for general adult medical examination without abnormal findings (principal); E11.69 Type 2 diabetes mellitus with other specified complication; E78.5 Hyperlipidemia, unspecified; I10 Essential (primary) hypertension; Z12.11 Encounter for screening for malignant neoplasm of colon